=== PATIENT | female | born 1970 | race African-American/Black ===

== ENCOUNTER 2017-05-18 06:14 | Inpatient (IN) | payer OTHER ==
[2017-05-14 13:03] VITALS: BMI 41.5
[2017-05-18] MEDS ORDERED: SUCCINYLCHOLINE CHLORIDE 200 MG/10 ML VIAL ONE (06:56)
[2017-05-18] MEDS ORDERED: fentaNYL CITRATE 250 MCG/5 ML VIAL ONE (06:56)
[2017-05-18] MEDS ORDERED: DEXAMETHASONE SOD PHOSPHATE 4 MG/1 ML VIAL ONE ×2 (06:56→10:08)
[2017-05-18] MEDS ORDERED: LIDOCAINE HCL 2% 100 MG/5 ML DISP.SYRIN ONE (06:56)
[2017-05-18] MEDS ORDERED: PROPOFOL 20 ML ONE ×2 (06:56→08:28)
[2017-05-18] MEDS ORDERED: MIDAZOLAM HCL 2 MG/2 ML SINGLE DOSE VIAL ONE (06:57)
[2017-05-18] MEDS ORDERED: ROCURONIUM BROMIDE 50 MG/5 ML VIAL ONE ×2 (06:57→09:05)
--- NOTE | 2017-05-18 07:53 | HP ---
Admitting History and Physical - Admission Chief Complaint: Morbid obesity History Source: Patient Limitations to Obtaining History: No Limitations - Past Medical History ...LMP: 05/05/17 - Past Surgical History Past Surgical History: Yes: - Smoking History Smoking history: Never smoked Aproximately how many cigarettes per day: 0 - Alcohol/Substance Use Hx Alcohol Use: Yes (rarely) Home Medications - Allergies Allergies/Adverse Reactions: Allergies Allergy/AdvReac Type Severity Reaction Status Date / Time No Known Allergies Allergy Verified 05/18/17 06:44 - Home Medications Home Medications: Ambulatory Orders NK [No Known Home Medication] 05/14/17 Family Disease History - Family Disease History Family History: Unremarkable Review of Systems - Review of Systems Constitutional: denies: Chills, Fever HENT: reports: No Symptoms Neck: reports: No Symptoms Cardiovascular: reports: No Symptoms Respiratory: reports: No Symptoms Genitourinary: reports: No Symptoms Neurological: denies: Change in LOC Pain Intensity: 0 Physical Examination Vital Signs: Vital Signs Temperature 98.4 F 05/18/17 06:49 Pulse Rate 80 05/18/17 06:49 Respiratory Rate 16 05/18/17 06:49 Blood Pressure 133/82 05/18/17 06:49 O2 Sat by Pulse Oximetry (%) 100 05/18/17 06:48 Constitutional: Yes: Calm Neck: Yes: WNL Cardiovascular: Yes: WNL Respiratory: Yes: WNL Gastrointestinal: Yes: Soft, Abdomen, Obese Neurological: Yes: Alert, Oriented Problem List - Problems (1) Morbid obesity Code(s): E66.01 - MORBID (SEVERE) OBESITY DUE TO EXCESS CALORIES Assessment/Plan For Robotic possible open vertical sleeve gastrectomy, possible liver biopsy, upper endoscopy
[2017-05-18] MEDS ORDERED: ceFAZolin SODIUM 1 GM VIAL IVPB ONE (08:24)
[2017-05-18] MEDS ORDERED: NEOSTIGMINE METHYLSULFATE 0.5 MG/ML - 10 ML MDV ONE (09:53)
[2017-05-18] MEDS ORDERED: HYDROmorphone HCL CARPU-JECT 1 MG/1 ML DISP.SYRIN IVPB PRN (10:14)
--- NOTE | 2017-05-18 10:14 | OP ---
Operative Note - Note: Operative Date: 05/18/17 Pre-Operative Diagnosis: Morbid obesity Operation: Robotic vertical sleeve gastrectomy. Robotic wedge liver biopsy. Endoscopy/EGD Post-Operative Diagnosis: Other (MOrbid obesity, hepatomegaly) Surgeon: Tomy Coulter Skinner Pelts: Ashely Souza (moises bah) Anesthesia: General Specimens Removed: Greater curvature of stomach. Liver biopsy Estimated Blood Loss (mls): 30 Drains & Tubes with Location: 40 Fr Bougie Operative Report Dictated: Yes
[2017-05-18] MEDS ORDERED: HYDROmorphone HCL CARPU-JECT 2 MG/1 ML DISP.SYRIN IVPUSH ONE ×2 (10:45→12:00)
[2017-05-18] MEDS ORDERED: ACETAMINOPHEN 1000 MG/100 ML VIAL (NON FORMULARY) IVPB ONE (10:50)
[2017-05-18] MEDS ORDERED: HYDROmorphone HCL CARPU-JECT 1 MG/1 ML DISP.SYRIN IVPUSH PRN (10:51)
[2017-05-18] MEDS ORDERED: HYDROmorphone HCL CARPU-JECT 2 MG/1 ML DISP.SYRIN ONE (10:52)
[2017-05-18] MEDS ORDERED: FAMOTIDINE 20 MG/50 ML IVPB 20 MG/50 ML MG IVPB ONE (10:54)
[2017-05-18] MEDS ORDERED: FAMOTIDINE 20 MG PREMIXED IVPB IVPB ONE (11:10)
[2017-05-18 11:12] LABS: HEMATOCRIT 39.2 % (32.4-45.2); HEMOGLOBIN 12.7 GM/dL (10.7-15.3); MCH 23.8 pg (25.7-33.7); MCHC 32.4 g/dl (32.0-36.0); MEAN CELL VOLUME 73.5 fl (80-96); MEAN PLT VOLUME 8.4 fl (7.5-11.1); PLATELET COUNT 408 K/MM3 (134-434); RBC 5.33 M/mm3 (3.60-5.2); WHITE BLOOD COUNT 15.4 K/mm3 (4.0-10.0)
[2017-05-18] MEDS ORDERED: METOCLOPRAMIDE HCL INJECTION 10 MG/2 ML VIAL IVPUSH ONE (11:30)
[2017-05-18 11:40] LABS: ALBUMIN 3.5 g/dl (3.4-5.0); ALK PHOS 110 U/L (45-117); ANION GAP 6 (8-16); BILIRUBIN,TOTAL 0.2 mg/dL (0.2-1.0); BLOOD UREA NITROGEN 7 mg/dL (7-18); CALCIUM 7.6 mg/dL (8.5-10.1); CHLORIDE 106 mmol/L (98-107); CO2 27 mmol/L (21-32); CREATININE 0.7 mg/dL (0.55-1.02); GLUCOSE,RANDOM 201 mg/dL (74-106); POTASSIUM 3.5 mmol/L (3.5-5.1); SGOT/AST 65 U/L (15-37); SGPT/ALT 60 U/L (12-78); SODIUM 139 mmol/L (136-145); TOT PROT 7.1 g/dl (6.4-8.2)
[2017-05-18] MEDS ORDERED: ONDANSETRON 4 MG/2 ML VIAL ONE (12:27)
[2017-05-18] MEDS ORDERED: ONDANSETRON 4 MG/2 ML VIAL IVPUSH ONE (12:32)
[2017-05-18] MEDS ORDERED: HYDROmorphone *PCA* 6MG/30ML DISP.SYRIN PCA ONE (12:44)
[2017-05-18] MEDS ORDERED: HYDROmorphone *PCA* 10MG/50ML DISP.SYRIN PCA ONE (13:10)
--- NOTE | 2017-05-18 13:31 | SURG ---
Surgery Careers Counsellor Note Careers Counsellor: Ashely Souza PA-C Date of Service: 05/18/17 Diagnosis: Morbid obesity Procedure: Robotic vertical sleeve gastrectomy. Robotic wedge liver biopsy. Endoscopy/EGD I was present for the entirety of the operative procedure. For further detail, please refer to operative report. Visit type - Case Type Case Type: Scheduled Admission - Emergency Emergency Visit: No - New patient This patient is new to me today: Yes Date on this admission: 05/18/17
[2017-05-18] MEDS: ONDANSETRON 4 MG/2 ML VIAL IVPUSH SCH ×4 (14:50→21:31)
[2017-05-18] MEDS: SODIUM CHLORIDE 1,000 ML IV SCH (15:48)
[2017-05-18] MEDS: METOCLOPRAMIDE HCL INJECTION 10 MG/2 ML VIAL IVPUSH SCH ×3 (15:53→21:31)
[2017-05-18] MEDS: ACETAMINOPHEN 1000 MG/100 ML VIAL (NON FORMULARY) IVPB SCH ×2 (15:54→17:26)
[2017-05-18] MEDS: HYDROmorphone *PCA* 6MG/30ML DISP.SYRIN PCA SCH (15:55)
[2017-05-18] MEDS ORDERED: PT OWN MED DRAWER 7, Y5N ONE (21:23)
[2017-05-18] MEDS: ENOXAPARIN NA (PORCINE) 40 MG/0.4 ML DISP.SYRIN SQ SCH (21:30)
[2017-05-18] MEDS: FAMOTIDINE 20 MG/50 ML IVPB 20 MG/50 ML MG IVPB SCH (22:01)
[2017-05-19] MEDS: ACETAMINOPHEN 1000 MG/100 ML VIAL (NON FORMULARY) IVPB SCH ×2 (01:15→05:20)
[2017-05-19] MEDS: ONDANSETRON 4 MG/2 ML VIAL IVPUSH SCH ×6 (02:42→22:11)
[2017-05-19] MEDS: METOCLOPRAMIDE HCL INJECTION 10 MG/2 ML VIAL IVPUSH SCH ×4 (02:45→22:11)
[2017-05-19 07:11] LABS: HEMATOCRIT 35.7 % (32.4-45.2); HEMOGLOBIN 11.8 GM/dL (10.7-15.3); MCH 23.8 pg (25.7-33.7); MEAN CELL VOLUME 72.2 fl (80-96); MEAN PLT VOLUME 8.3 fl (7.5-11.1); PLATELET COUNT 346 K/MM3 (134-434); RBC 4.95 M/mm3 (3.60-5.2); RDW 18.4 % (11.6-15.6); WHITE BLOOD COUNT 13.6 K/mm3 (4.0-10.0)
[2017-05-19 08:19] LABS: ALBUMIN 3.2 g/dl (3.4-5.0); ANION GAP 8 (8-16); BLOOD UREA NITROGEN 4 mg/dL (7-18); CALCIUM 7.2 mg/dL (8.5-10.1); CHLORIDE 104 mmol/L (98-107); CO2 25 mmol/L (21-32); GLUCOSE,RANDOM 89 mg/dL (74-106); POTASSIUM 3.3 mmol/L (3.5-5.1); SODIUM 137 mmol/L (136-145)
[2017-05-19 08:23] LABS: ALK PHOS 89 U/L (45-117); BILIRUBIN,TOTAL 0.4 mg/dL (0.2-1.0); CREATININE 0.5 mg/dL (0.55-1.02); SGOT/AST 89 U/L (15-37); SGPT/ALT 87 U/L (12-78); TOT PROT 6.5 g/dl (6.4-8.2)
[2017-05-19] MEDS: ENOXAPARIN NA (PORCINE) 40 MG/0.4 ML DISP.SYRIN SQ SCH ×2 (10:37→22:12)
[2017-05-19] MEDS: FAMOTIDINE 20 MG/50 ML IVPB 20 MG/50 ML MG IVPB SCH ×2 (10:38→22:11)
[2017-05-19] MEDS: SODIUM CHLORIDE 1,000 ML IV SCH (10:39)
[2017-05-19] MEDS ORDERED: HYDROmorphone *PCA* 6MG/30ML DISP.SYRIN PCA ONE (12:35)
[2017-05-19] MEDS: HYDROmorphone *PCA* 6MG/30ML DISP.SYRIN PCA SCH (12:46)
[2017-05-19] MEDS ORDERED: SODIUM CHLORIDE 1,000 ML IV SCH ×2 (14:15→20:30)
--- NOTE | 2017-05-19 15:30 | PATH ---
Surgical Pathology Report Patient Name: JACQUELYN DARLING [facility]. Rec. #: [id number] /Age/Gender: 1970 (Age: 46) / F Account: [id number] Location: 4 PEDS/ADOL Taken: 05/18/2017 Received: 05/18/2017 Reported: 05/19/2017 Physicians: Tomy Coulter M.D. Specimen(s) Received A: GREATER CURVATURE OF STOMACH B: LIVER BIOPSY Clinical History Morbid obesity Final Diagnosis A. STOMACH, GREATER CURVATURE, ROBOTIC ASSISTED LAPAROSCOPIC VERTICAL SLEEVE GASTRECTOMY: PORTION OF STOMACH WITH MILD CHRONIC GASTRITIS. IMMUNOHISTOCHEMICAL STAIN FOR H. PYLORI IS NEGATIVE. B. LIVER, BIOPSY: LIVER PARENCHYMA WITH MILD PATCHY STEATOSIS ( ~5%). NO INCREASE IN IRON AND FIBROSIS ON PERFORMED SPECIAL STAINS (IRON AND TRICHROME). Electronically Signed Rowan Hernandez M.D. Gross Description A. Received in formalin, labeled "greater curvature of stomach," is a 100 gram, 19.0 x 3.8 x 3.3 cm. portion of stomach with a stapled margin of resection. The serosa is kim-dunlap with minimal attached fat. The mucosa is kim-pink with normal folds. No mucosal masses are identified. Software Installer sections are submitted in one cassette. B. Received in formalin labeled "liver biopsy," is a 1.9 x 0.9 x 0.6 cm kim, irregular portion of liver tissue. The specimen is bisected and entirely submitted in one cassette. /05/18/2017 saudi05/18/2017
[2017-05-19] MEDS ORDERED: PT OWN MED DRAWER 7, Y5N ONE ×4 (15:32→19:18)
--- NOTE | 2017-05-19 20:23 | PN ---
Progress Note (short form) - Note Progress Note: POD 1 Pain controlled No nausea Vital Signs Period Temp Pulse Resp BP Sys/Nixon Pulse Ox Last 24 Hr 97.7 F-99.0 F 78-82 16-22 133-159/69-95 95-95 Abd soft CBC, BMP 05/19/17 05:35 05/19/17 05:35 UGI: no leak/obstruction Clears Ambulate Problem List - Problems (1) Morbid obesity Code(s): E66.01 - MORBID (SEVERE) OBESITY DUE TO EXCESS CALORIES
[2017-05-19] MEDS ORDERED: oxyCODONE HCL 5 MG TABLET PO PRN (20:27)
[2017-05-20] MEDS: METOCLOPRAMIDE HCL INJECTION 10 MG/2 ML VIAL IVPUSH SCH (02:10)
[2017-05-20] MEDS: ONDANSETRON 4 MG/2 ML VIAL IVPUSH SCH ×2 (02:10→05:49)
[2017-05-20 06:35] VITALS: TEMP 98.7
[2017-05-20 08:50] VITALS: BP 140/95; PULSE 90
--- NOTE | 2017-05-20 09:30 | SPEC ---
DATE OF OPERATION: 05/18/2017 SURGEON: Salas Coulter MD SYSTEMS ADMINISTRATION ANALYST: MARAI INES Rees; Yen Warner PREOPERATIVE DIAGNOSIS: Morbid obesity. POSTOPERATIVE DIAGNOSIS: Morbid obesity and hepatomegaly. PROCEDURES: 1. Robotic vertical sleeve gastrectomy. 2. Robotic wedge liver biopsy. 3. Upper endoscopy/esophagogastroduodenoscopy. SPECIMENS: 1. Greater curvature of the stomach. 2. Wedge biopsy of the left lobe of the liver. ESTIMATED BLOOD LOSS: 30 mL. BOUGIE: 40-Citizen Of [place] ANESTHESIA: GET. DRAINS: None. REASON FOR PROCEDURE: This is a 46-year-old female who presents to the office for weight loss options. I have described her options. She decided to proceed with a robotic vertical sleeve gastrectomy, possible open, possible liver biopsy and upper endoscopy. The risks and benefits of the procedure were explained. RISKS AND BENEFITS: After describing the different options for management of weight loss, the patient decided to proceed with a robotic laparoscopic, possible open vertical sleeve gastrectomy. The patient was seen by the respective subspecialities and cleared for surgery. The risks and benefits of the procedure were explained. These included bleeding, infection, hernia, NM, DVT, PE, injury to surrounding structures including the liver, colon, bowel, spleen, esophagus, vessel injury, nerve injury, weight regain, gastric leak, staple line leak, sleeve leak, obstruction, vitamin deficiency, hair loss, and as some of the possible complications. The patient understood and signed informed consent. DESCRIPTION OF PROCEDURE: The patient was placed supine on the operating room table. The patient underwent general endotracheal intubation. A Milligan catheter was inserted by the nursing staff. The arms were brought out at 90 degrees and secured. A foot board was placed and the legs were secured laterally with padding. The abdomen was prepped and draped in the usual sterile fashion. A time-out was performed. An incision was made superior and to the left of the umbilicus. A Veress needle was inserted. Pneumoperitoneum was established. Subsequently the Veress needle was removed. An 8-mm robotic trocar was placed under direct visualization with the laparoscope. Inspection of the abdominal cavity was performed. An 8-mm trocar was then placed in the left abdominal wall approximately 6 to 7 cm to the left of the initial trocar. An 8-mm robotic trocar was then placed in the left abdominal wall approximately 6 to 7 cm to the left of the initial trocar. A 12-mm robotic trocar was then placed in the right abdominal wall approximately 6 to 7 cm to the right of the initial trocar and an 8-mm robotic trocar placed approximately 6 to 7 cm lateral to the 12-mm trocar. A stab wound was made in the subxiphoid area and a Mamta clamp inserted and removed to dilate the tract. A Tomeka liver retractor was inserted. The post was secured at the bedside by the nursing staff. The patient was placed in steep reverse Trendelenburg position and the Tomeka liver retractor was used to secure the liver towards the anterior abdominal wall. The robot was brought over the field and docked. Dissection was performed at the console. The pylorus was identified and 6 cm proximal to it the lesser sac was entered using the vessel sealer. From this point cephalad all lateral attachments to the greater curvature of the stomach including the short gastric vessels were ligated using the vessel sealer towards the gastrosplenic and gastrophrenic ligaments. Once this was done in its entirety, all tubes within the nasal or oropharyngeal cavity including a temperature probe was confirmed to be removed by Anesthesia. The bougie was then inserted by Anesthesia. Transection of the stomach was then begun staying adjacent to the bougie, but away from the angularis. Transection of the stomach was performed near the portion of the stomach where the lesser sac was entered. Two robotic green ja were used at this location. Robotic blue ja were then used for the remainder of the transection until the greater curvature of the stomach was fully transected. Again this was done staying close to the bougie. Care was taken to stay away from the angle of His cephalad. The staple line was then inspected. Hemostasis was identified. A leak test was then performed. The stomach was clamped distally to the staple line. Irrigation solution was placed in the left upper quadrant and air insufflated by Anesthesia into the sleeve. No leaks were identified and no obstruction was identified. This was done throughout the staple line. At this point, the irrigation solution was suctioned and again hemostasis noted. A wedge liver biopsy was then performed. A portion of the left lobe of the liver was identified and an edge of it grasped. Using electrocautery a wedge of this portion of the liver was excised. The specimen was removed from the abdominal cavity and sent off the field. Hemostasis of the biopsy site as attained using electrocautery. The robotic instruments were then removed. The robot was undocked from the operative field. The 12-mm robotic trocar was removed and the greater curvature specimen removed from this site using a sponge stick gaona. The specimen was inspected and the Veress needle inserted. The specimen insufflated adequately and no leak was identified. The staple line was noted to be straight and intact. A Rahul-David device was then used to close the fascia with a 0 Vicryl suture at this site. The liver retractor was removed under direct visualization. Pneumoperitoneum was desufflated and the fascial suture was secured. Hemostasis was noted at all incision sites and Marcaine was injected at all incision sites. All incision sites were closed using 4-0 Biosyn. Sterile dressings were applied. The patient tolerated the procedure well and was transferred to the recovery room in stable condition with a Milligan catheter intact. The patient was transferred to telemetry for further monitoring. In addition, at the end of the case an upper endoscopy was performed to further evaluate for obstruction, leak. The endoscope was inserted into the patient's mouth. The entirety of the esophagus, GE junction, gastric pouch, and staple line was inspected. Hemostasis was noted. No obstruction or leak was noted. The endoscope was then used to suction the stomach and it was removed. The patient tolerated the procedure well, was transferred to recovery room in stable condition. SALAS COULTER M.D. [id number]
== END 2017-05-20 10:28 | disposition home or self-care (01) | DRG 621 ==
LOC: JSAMEDAYSX 06:14 → EDSTATUS 09:00 → J4S 14:08
PROVIDERS: ADMIT Surgery; ATTEND Surgery
PROC: 0FB20ZX Excision of Left Lobe Liver, Open Approach, Diagnostic (ICD-10-PCS; 2017-05-18)
PROC: 0DJ08ZZ Inspection of Upper Intestinal Tract, Via Natural or Artificial Opening Endoscopic (ICD-10-PCS; 2017-05-18)
PROC: 8E0W8CZ Robotic Assisted Procedure of Trunk Region, Via Natural or Artificial Opening Endoscopic (ICD-10-PCS; 2017-05-18)
PROC: 0DB64Z3 Excision of Stomach, Percutaneous Endoscopic Approach, Vertical (ICD-10-PCS; principal; 2017-05-18 09:00)
DX: E66.01 Morbid (severe) obesity due to excess calories (principal); Z68.41 Body mass index [BMI] 40.0-44.9, adult; R16.0 Hepatomegaly, not elsewhere classified; K29.50 Unspecified chronic gastritis without bleeding; K76.0 Fatty (change of) liver, not elsewhere classified
CPT/HCPCS: 36415; 74241-TC-FY; 80053; 84703; 85027; 86850; 86900; 86901; 88307-TC; 94010; 94760; J0131; J1170; J7030

== ENCOUNTER 2017-07-07 13:27 | Emergency (ER) | payer OTHER ==
[2017-07-07 13:35] VITALS: TEMP 97.9; BMI 34.9
--- NOTE | 2017-07-07 15:04 | PDOC ---
History of Present Illness - General Chief Complaint: Pain Stated Complaint: PAIN/ ABD, BACK Recent Gastric Sleeve 05/18/17 Time Seen by Provider: 07/07/17 15:04 - History of Present Illness Initial Comments: 46 year old female with PMH of GERD and recent gastric sleeve resection ( without complication and appropriate diet advancement) presenting with sudden onset of left sided flank pain and urinary urgency with difficulty since 12:00 this afternoon. Denies history of kidney stones and has had not complications post resection. Denies fevers, chills, nausea, vomiting, diarrhea , constipation, or other symptoms. 07/07/17 15:28 Past History - Past Medical History Allergies/Adverse Reactions: Allergies Allergy/AdvReac Type Severity Reaction Status Date / Time No Known Allergies Allergy Verified 07/07/17 13:34 Home Medications: Ambulatory Orders NK [No Known Home Medication] 07/07/17 Anemia: No Asthma: No Cancer: No Cardiac Disorders: No CVA: No COPD: No CHF: No Dementia: No Diabetes: No GI Disorders: No Disorders: No HTN: No Hypercholesterolemia: No Liver Disease: No Seizures: No Thyroid Disease: No - Surgical History Abdominal Surgery: Yes (TUBAL LIGATION, GASTRIC SLEEVE 05/2017) - Immunization History Immunization Up to Date: Yes - Suicide/Smoking/Psychosocial Hx Smoking Status: No Smoking History: Never smoked Number of Cigarettes Smoked Daily: 0 Information on smoking cessation initiated: No Hx Alcohol Use: No Drug/Substance Use Hx: No Substance Use Type: None Hx Substance Use Treatment: No Review of Systems - Review of Systems Constitutional: No: Chills, Diaphoresis, Fever HEENTM: No: Blurred Vision, Ear Pain Respiratory: No: Cough, Shortness of Breath, Wheezing Cardiac (ROS): No: Chest Pain, Irregular Heart Rate, Chest Tightness ABD/GI: No: Constipated, Diarrhea, Nausea, Vomiting Integumentary: No: Lesions, Lumps, Pallor Neurological: No: Headache, Numbness, Weakness Endocrine: No: Flushing *Physical Exam - Vital Signs Last Vital Signs Temp Pulse Resp BP Pulse Ox 97.9 F 84 19 140/88 100 07/07/17 13:32 07/07/17 13:32 07/07/17 13:32 07/07/17 13:32 07/07/17 13:32 - Physical Exam General Appearance: Yes: Nourished, Appropriately Dressed. No: Apparent Distress HEENT: positive: EOMI, ADAM, Normal ENT Inspection, Normal Voice Neck: positive: Trachea midline, Normal Thyroid, Supple. negative: Tender, Rigid Respiratory/Chest: positive: Lungs Clear, Normal Breath Sounds. negative: Chest Tender, Respiratory Distress Cardiovascular: positive: Regular Rhythm, Regular Rate Gastrointestinal/Abdominal: positive: Normal Bowel Sounds, Flat, Soft. negative : Tender Musculoskeletal: positive: Normal Inspection. negative: CVA Tenderness Extremity: positive: Normal Capillary Refill, Normal Inspection, Normal Range of Motion. negative: Tender Integumentary: positive: Normal Color, Dry, Warm Neurologic: positive: Fully Oriented, Alert, Normal Mood/Affect, Normal Response , Motor Strength 08/14 ED Treatment Course - LABORATORY CBC & Chemistry Diagram: 07/07/17 15:27 07/07/17 15:27 Medical Decision Making - Medical Decision Making UA was dirty but significant for microscopic hematuria. Will repeat UA and obtain UC but will CT scan without contrast in the meantime. Flank pain much resolved with Toradol IV 15. Likely stone vs. left ovarian pathology. Signed out to Dr. Trevino in stable condition pending repeat imaging and repeat UA pending. 07/07/17 18:43 *DC/Admit/Observation/Transfer Diagnosis at time of Disposition: Renal calculi - Discharge Dispostion Condition at time of disposition: Improved Admit: No - Referrals Referrals: Ramu Mckeon MD [Primary Care Provider] - - Patient Instructions Printed Discharge Instructions: DI for Kidney Stones Additional Instructions: You have a stone in your left urinary tract. It should pass on its own within a few days. Please use Tylenol and Motrin for the pain. Please return to the ED if you have pain that isn't better with these medications or nausea/vomiting that doesn't allow you to keep your medicines down. Also return if gomez have new or worsening symptoms. - Post Discharge Activity
[2017-07-07] MEDS ORDERED: KETOROLAC TROMETHAMINE 15 MG/ML VIAL IVPUSH ONE (15:24)
--- NOTE | 2017-07-07 15:30 | PDOC ---
Attending Attestation - Resident Resident Name: Hermes Masters - ED Attending Attestation I have performed the following: I have examined & evaluated the patient, The case was reviewed & discussed with the resident, I agree w/resident's findings & plan, Exceptions are as noted - Physicial Exam PE: 07/07/17 17:02 Patient is awake and alert, obese, in no distress on my evaluation Normocephalic, atraumatic PERRLA, EOMI CTA Soft, nontender, nondistended, bowel sounds are present in all 4 quadrants No CVA tenderness bilaterally - Medical Decision Making 07/07/17 17:03 46-year-old female presents with atraumatic left flank and left lower quadrant pain. Differential diagnoses includes nephrolithiasis versus ovarian cyst versus ovarian torsion. Urinalysis reveals hematuria without presence of pyuria. Will obtain CT that and pelvis to rule out kidney stone. We'll consider pelvic ultrasound for ovarian pathology if necessary. Will reassess. <Kermit Cantor - Last Filed: 07/07/17 17:02> - HPI HPI: 07/07/17 17:09 The patient is a 46 year old female with a significant PMH of GERD and gastric sleeve resection who presents to the emergency department with left sided flank pain and LLQ pain beginning approximately 5 hours ago. She describes her pain as an intermittent, cramping sensation which is 10/10 at its worst. She reports she does not feel significant pain upon presentation. The patient denies fevers , chills, nausea, vomiting, and diarrhea. She denies dysuria or urinary incontinence. Allergies: NKA PCP: Dr. Mckeon <Ulisses Johnson - Last Filed: 07/07/17 17:09>
[2017-07-07 15:33] LABS: HCG,QUALITATIVE URINE NEGATIVE; URINE APPEARANCE CLOUDY; URINE BILIRUBIN NEGATIVE (<2.0 mg/dL); URINE BLOOD 2+ (NEGATIVE); URINE COLOR YELLOW; URINE GLUCOSE (UA) NEGATIVE (NEGATIVE); URINE KETONE 2+ (NEGATIVE); URINE NITRITE NEGATIVE (NEGATIVE); URINE UROBILINOGEN NEGATIVE mg/dL (0.2-1.0)
[2017-07-07] MEDS ORDERED: KETOROLAC TROMETHAMINE 15 MG/ML VIAL ONE (15:35)
[2017-07-07 15:36] LABS: URINE LEUK ESTERASE 2+ (NEGATIVE); URINE PROTEIN 1+ (NEGATIVE)
[2017-07-07 15:37] LABS: EPI CELLS MANY /HPF (FEW); URINE BACTERIA RARE /hpf (NONE SEEN); URINE MUCUS RARE
[2017-07-07 16:06] LABS: BASO % 0.8 % (0-2.0); EOS % 0.4 % (0-4.5); HEMATOCRIT 37.9 % (32.4-45.2); HEMOGLOBIN 13.1 GM/dL (10.7-15.3); LYMPH % 20.8 % (8-40); MCH 25.5 pg (25.7-33.7); MCHC 34.7 g/dl (32.0-36.0); MEAN CELL VOLUME 73.6 fl (80-96); MEAN PLT VOLUME 9.3 fl (7.5-11.1); MONO % 5.3 % (3.8-10.2); NEUT % 72.7 % (42.8-82.8); PLATELET COUNT 332 K/MM3 (134-434); RBC 5.15 M/mm3 (3.60-5.2)
[2017-07-07 16:32] LABS: ALBUMIN 3.8 g/dl (3.4-5.0); ALK PHOS 94 U/L (45-117); ANION GAP 10 (8-16); BILIRUBIN,TOTAL 0.3 mg/dL (0.2-1.0); BLOOD UREA NITROGEN 11 mg/dL (7-18); CALCIUM 9.2 mg/dL (8.5-10.1); CHLORIDE 105 mmol/L (98-107); CO2 24 mmol/L (21-32); CREATININE 0.7 mg/dL (0.55-1.02); GLUCOSE,RANDOM 118 mg/dL (74-106); POTASSIUM 3.3 mmol/L (3.5-5.1); SGOT/AST 17 U/L (15-37); SGPT/ALT 19 U/L (12-78); SODIUM 139 mmol/L (136-145); TOT PROT 7.1 g/dl (6.4-8.2)
[2017-07-07] MEDS ORDERED: SODIUM CHLORIDE 0.9% 500 ML INFUS.BAG IV ONE (16:43)
[2017-07-07 19:11] LABS: URINE APPEARANCE CLEAR; URINE BILIRUBIN NEGATIVE (<2.0 mg/dL); URINE BLOOD 2+ (NEGATIVE); URINE COLOR STRAW; URINE GLUCOSE (UA) NEGATIVE (NEGATIVE); URINE KETONE 1+ (NEGATIVE); URINE LEUK ESTERASE NEGATIVE (NEGATIVE); URINE NITRITE NEGATIVE (NEGATIVE); URINE PROTEIN NEGATIVE (NEGATIVE); URINE UROBILINOGEN NEGATIVE mg/dL (0.2-1.0)
[2017-07-07 19:15] LABS: EPI CELLS RARE /HPF (FEW); URINE BACTERIA RARE /hpf (NONE SEEN); URINE MUCUS RARE
--- NOTE | 2017-07-07 21:35 | PDOC ---
*Physical Exam - Vital Signs Last Vital Signs Temp Pulse Resp BP Pulse Ox 97.9 F 84 19 140/88 100 07/07/17 13:32 07/07/17 13:32 07/07/17 13:32 07/07/17 13:32 07/07/17 13:32 - Physical Exam Comments: 07/07/17 21:58 GENERAL: Awake, alert, and fully oriented, in no acute distress HEAD: No signs of trauma, normocephalic, atraumatic EYES: PERRLA, EOMI, sclera anicteric, conjunctiva clear ENT:Hearing grossly normal, nares patent, oropharynx clear without exudates. Moist mucosa NECK: Normal ROM, supple, no lymphadenopathy, JVD, or masses LUNGS: No distress, speaks full sentences, clear to auscultation bilaterally HEART: Regular rate and rhythm, normal S1 and S2, no murmurs, rubs or gallops, peripheral pulses normal and equal bilaterally. ABDOMEN: Soft, nontender, normoactive bowel sounds. No guarding, no rebound. No masses EXTREMITIES : Normal inspection, Normal range of motion, no edema. No clubbing or cyanosis. SKIN: Warm, Dry, normal turgor, no rashes or lesions noted ED Treatment Course - LABORATORY CBC & Chemistry Diagram: 07/07/17 15:27 07/07/17 15:27 - ADDITIONAL ORDERS Additional order review: Laboratory Results 07/07/17 07/07/17 07/07/17 18:54 15:27 15:25 Sodium 139 Potassium 3.3 L Chloride 105 Carbon Dioxide 24 Anion Gap 10 BUN 11 Creatinine 0.7 Creat Clearance w eGFR > 60 Random Glucose 118 H Calcium 9.2 Total Bilirubin 0.3 D AST 17 ALT 19 Alkaline Phosphatase 94 Total Protein 7.1 Albumin 3.8 Urine Color Straw Yellow Urine Appearance Clear Cloudy Urine pH 6.0 5.0 Ur Specific [place] 1.008 1.032 Urine Protein Negative 1+ H Urine Glucose (UA) Negative Negative Urine Ketones 1+ H 2+ H Urine Blood 2+ H 2+ H Urine Nitrite Negative Negative Urine Bilirubin Negative Negative Urine Urobilinogen Negative Negative Ur Leukocyte Esterase Negative 2+ H Urine WBC (Auto) 1 12 Urine RBC (Auto) 9 69 Ur Epithelial Cells Rare Many Urine Bacteria Rare Rare Urine Mucus Rare Rare Urine HCG, Qual Negative 07/07/17 15:27 RBC 5.15 MCV 73.6 L MCHC 34.7 RDW 19.0 H MPV 9.3 D Neutrophils % 72.7 D Lymphocytes % 20.8 D Monocytes % 5.3 Eosinophils % 0.4 D Basophils % 0.8 - Medications Given in the ED: ED Medications Discontinued Medications Generic Name Dose Route Start Last Admin Trade Name Tan PRN Reason Stop Dose Admin Ketorolac Tromethamine 15 mg 07/07/17 15:24 07/07/17 15:57 Toradol Injection - IVPUSH 07/07/17 15:25 15 mg ONCE ONE Administration Sodium Chloride 1,000 ml 07/07/17 16:43 07/07/17 17:29 Normal Saline - IV 07/07/17 16:44 1,000 ml ONCE ONE Administration Medical Decision Making - Medical Decision Making 07/07/17 21:[address] Masters 46 yo F with h/o GERD and gastric sleeve resection (05/20/17 )p/w sudden onset of L sided sided flank pain and urinary urgency with difficulty since 12:00 ( ).Denies N/V, F/C, dysuria, hematuria, CP, SOB, diarrhea, constipation. CT AP pending. ED Course: CT AP noteable for 2 mm stone at left UVJ with mild hydro. No evidence of pyeloneprhitis, or overt signs of infection. Pt. advised to f/u with urology and sent Flomax to pharmacy. Patient stable for d/c with return precautions. Advised to f/u with urology. *DC/Admit/Observation/Transfer Diagnosis at time of Disposition: Renal calculi - Discharge Dispostion Condition at time of disposition: Improved - Prescriptions Prescriptions: Tamsulosin HCl [Flomax] 0.4 mg PO DAILY 7 Days #7 cap.er.24h MDD 1 tab - Referrals Referrals: Ramu Mckeon MD [Primary Care Provider] - Swapnil Chopra MD [Staff Physician] - - Patient Instructions Printed Discharge Instructions: DI for Kidney Stones Additional Instructions: You have a stone in your left urinary tract. It should pass on its own within a few days. Please use Tylenol and Motrin for the pain. Please return to the ED if you have pain that isn't better with these medications or nausea/vomiting that doesn't allow you to keep your medicines down. Also return if you have new or worsening symptoms. Please take flomax daily.Please follow up with urology within 1 week. - Post Discharge Activity - Attestations Physician Attestion: 07/07/17 21:47 I attest to the information provided in this note.
[2017-07-07] MEDS ORDERED: KETOROLAC TROMETHAMINE 30 MG/1 ML VIAL ONE (21:57)
[2017-07-07 21:59] VITALS: BP 118/80; PULSE 68
--- NOTE | 2017-07-08 12:16 | CONSULT ---
Consult Consult Specialty:: Bariatric Surgery Reason for Consultation:: Left back/flank pain - History of Present Illness Chief Complaint: Left back/flank pain History of Present Illness: 46 female presents for left back/flank pain + pain on urination No fevers Tolerating diet +BM - History Source History Provided By: Patient - Past Medical History ...LMP: 05/05/17 - Past Surgical History Past Surgical History: Yes: Bariatric Surgery (Sleeve gastrectomy), - Alcohol/Substance Use Hx Alcohol Use: No - Smoking History Smoking history: Never smoked Aproximately how many cigarettes per day: 0 Home Medications - Allergies Allergies/Adverse Reactions: Allergies Allergy/AdvReac Type Severity Reaction Status Date / Time No Known Allergies Allergy Verified 07/07/17 13:34 - Home Medications Home Medications: Ambulatory Orders Tamsulosin HCl [Flomax] 0.4 mg PO DAILY 7 Days #7 cap.er.24h MDD 1 tab 07/07/17 Review of Systems - Review of Systems Constitutional: denies: Chills, Fever Neck: reports: No Symptoms Cardiovascular: reports: No Symptoms. denies: Chest Pain Respiratory: reports: No Symptoms Gastrointestinal: reports: Other (Left back/flank pain). denies: Abdominal Pain Neurological: denies: Change in LOC Pain Intensity: 5 Physical Exam Vital Signs: Vital Signs Temperature 97.9 F 07/07/17 13:32 Pulse Rate 68 07/07/17 21:58 Respiratory Rate 16 07/07/17 21:58 Blood Pressure 118/80 07/07/17 21:58 O2 Sat by Pulse Oximetry (%) 100 07/07/17 13:32 Constitutional: Yes: Calm HENT: Yes: WNL Neck: Yes: Supple Cardiovascular: Yes: Regular Rate and Rhythm Respiratory: Yes: Regular Gastrointestinal: Yes: Soft, Other. No: Tenderness, Rebound Renal/: Yes: CVA Tenderness - Left Wound/Incision: Yes: Clean/Dry Neurological: Yes: Alert, Oriented Labs: CBC, BMP 07/07/17 15:27 07/07/17 15:27 Imaging - Results Cat Scan: Report Reviewed, Image Reviewed Problem List - Problems (1) Renal calculi Code(s): N20.0 - CALCULUS OF KIDNEY Assessment/Plan Renal stone Hydration Urology if does not improve
== END 2017-07-07 22:01 | disposition home or self-care (01) ==
LOC: JER 13:27
PROC: 3E0333Z Introduction of Anti-inflammatory into Peripheral Vein, Percutaneous Approach (ICD-10-PCS; principal; 2017-07-07)
PROC: 3E0337Z Introduction of Electrolytic and Water Balance Substance into Peripheral Vein, Percutaneous Approach (ICD-10-PCS; 2017-07-07)
DX: N20.0 Calculus of kidney (principal); K21.9 Gastro-esophageal reflux disease without esophagitis
CPT/HCPCS: 36415; 74176-TC; 80053; 81003; 81015; 84703; 85025; 87086; 99284-25

== ENCOUNTER 2019-03-11 17:17 | Emergency (ER) | payer OTHER ==
[2019-03-11 17:35] VITALS: BMI 32.2
--- NOTE | 2019-03-11 18:22 | PDOC ---
Attending Attestation - Resident Resident Name: Tomy Noble - ED Attending Attestation I have performed the following: I have examined & evaluated the patient, The case was reviewed & discussed with the resident, I agree w/resident's findings & plan, Exceptions are as noted - HPI HPI: 03/11/19 18:18 Ms. Darling is a 48-year-old female with no significant past medical history who presents emergency department with a complaint of epigastric pain radiating to her chest and back. Patient states her symptoms had a gradual onset, beginning at approximately 2 PM following a meal of macaroni and cheese. Patient went shopping with her daughter and while shopping she noted her symptoms persisted and worsened. She has not had symptoms like this before. She denies associated nausea, diaphoresis. No fevers or chills Patient has no medical history No recent travel, no lower extremity edema No shortness of breath No tobacco use Upon arrival to the emergency department, patient states her symptoms have completely resolved Her did give her 2 aspirins prior to arrival 03/11/19 18:19 - Physicial Exam PE: 03/11/19 18:19 GENERAL: The patient is in no acute distress. ENT: Ears normal, nares patent, oropharynx clear without exudates. Moist mucous membranes. NECK: Normal range of motion LUNGS: Breath sounds equal, clear to auscultation bilaterally. No wheezes, and no crackles. HEART:Regular rate and rhythm, normal S1 and S2 without murmur, rub or gallop. No chest wall tenderness to palpation ABDOMEN: Soft, nontender, normoactive bowel sounds. EXTREMITIES: Normal range of motion, no edema. NEUROLOGICAL: Cranial nerves II through XII grossly intact. Normal speech. No focal neurological deficits. SKIN: Warm, Dry, normal turgor, no rashes or lesions noted. - Medical Decision Making 03/11/19 18:20 48-year-old female presenting to the emergency department with a complaint of epigastric/chest pain radiating to the back Chest pain has resolved upon arrival to the ER Differential includes cardiac ischemia, pe, asthma exacerbation, pneumonia, pneumothorax, pleural effusion, costochondritis, pericarditis, GERD. Doubt pulmonary embolism given no risk factors, no tachycardia, no shortness of breath, no pleurisy No chest wall tenderness Cardiac ischemia is still a possibility however symptoms seems most likely related to gastritis/GERD We will do: Lab EKG Chest x-ray Blood pressures both arms Patient symptoms have completely resolved, no need for Pepcid We will reassess EKG: Normal sinus rhythm, rate of 63 bpm, axis is normal, intervals are normal, T waves are upright, no ST depressions or elevations, no pathologic Q waves 03/11/19 18:25 Blood pressure in both arms Right arm-125/72 Left arm-116/78 03/11/19 18:50 Laboratory Tests 03/11/19 03/11/19 03/11/19 18:00 18:00 18:00 WBC 8.4 Hgb 11.1 Hct 34.3 Plt Count 343 INR BUN 7.2 Creatinine 0.5 L Calcium 8.2 L Creatine Kinase 112 Troponin I < 0.02 Albumin 3.4 03/11/19 18:00 WBC Hgb Hct Plt Count INR 1.16 H BUN Creatinine Calcium Creatine Kinase Troponin I Albumin 03/11/19 21:53 Pt reported recurrent chest pain Will do CTA to r/o aortic dissection (given chest/epigastric pain radiating to the back) 03/12/19 01:44 CT: Referring Physician: AYUSH LEE Comments: Domenic Hopkins MD wrote on Mar 12, 2019 at 01:39 AM: Referring Physician: AYUSH LEE Patient Name: JACQUELYN DARLING THIS IS A PRELIMINARY REPORT FROM [facility] DATE OF SERVICE: 2019-03-11 22:25:40 IMAGES: [id number] EXAM: CTA CHEST WITHOUT AND WITH INTRAVENOUS CONTRAST AND CTA ABDOMEN AND PELVIS WITHOUT AND WITH INTRAVENOUS CONTRAST. HISTORY: Evaluate dissection. COMPARISON: None. FINDINGS: CTA CHEST: 1. Negative for thoracic aortic aneurysm and dissection. 2. There is no evidence for a central pulmonary embolus. Limited evaluation of the distal/peripheral pulmonary arteries. 3. Mild groundglass opacity of the medial right lower lobe, likely mild scarring secondary to a thoracic vertebral osteophyte. Otherwise, no focal infiltrate, significant pleural effusion or pneumothorax. CTA ABDOMEN AND PELVIS: 1. Negative for abdominal aortic aneurysm and dissection. 2. Abnormal configuration of bilateral common iliac arteries. 3. The SMA, celiac axis, bilateral renal arteries and TERRY are patent. 3. There is a nonspecific masslike soft tissue density measures 2.6 x 2.5 x 2.6 cm of the right paracentral lower abdominal wall which abuts the lower right abdominal rectus muscle. Question inflammatory/fibrous, cannot actually neoplasm. 4. Status post gastric surgery. 5. Limited evaluation of bowel due to the lack of oral contrast, however there is no bowel obstruction. There is colonic diverticulosis without acute diverticulitis. 6. Unremarkable appendix without appendicitis. 7. No free air or significant ascites. CTA negative for dissection However does show a soft tissue mass abutting the abdominal wall Pt given copies of her report with findings underlined and also discussed this with patient She will follow up with PMD Discharge - Discharge Information Problems reviewed: Yes Clinical Impression/Diagnosis: Gastritis Qualifiers: Gastritis type: unspecified gastritis Chronicity: acute Gastritis bleeding: without bleeding Qualified Code(s): K29.00 - Acute gastritis without bleeding Condition: Stable Disposition: HOME - Admission No - Follow up/Referral Referrals: Ramu Mckeon MD [Primary Care Provider] - Rajesh Edwards MD [Staff Physician] - - Patient Discharge Instructions Patient Printed Discharge Instructions: DI for Atypical Chest Pain, DI for Gastritis, Gastritis (Alternative Therapy) Additional Instructions: Thank you for coming in to the ER today Please make a follow up appointment with your primary doctor in 1 week. It may be a good idea to also follow up with a gastrointestinal specialist Please review your CT scan results (your were given a copy). Please give this to your primary care physician Please try over the counter Pepcid as needed for any acid reflux discomfort. If you experience any new, worsening, or concerning symptoms, including severe chest pain, difficulty breathing, severe back pain, or any other concerns, please return to the emergency department. - Post Discharge Activity
--- NOTE | 2019-03-11 18:29 | PDOC ---
History of Present Illness - General Chief Complaint: Chest Pain Stated Complaint: CHEST & BACK PAIN Time Seen by Provider: 03/11/19 17:28 - History of Present Illness Initial Comments: Ms. Crowe is a 48 y/o female with PMH significant for morbid obesity s/p gastric sleeve presenting today with substernal chest pressure radiating to the back. Reports that the pressure started around 1pm today. Describes the pressure as constant. Reports that this happened after eating mac and cheese for lunch. Reports mild heart palpitations earlier this afternoon. Denies shortness of breath. Denies chest pain worsening on exertion. Denies abdominal pain/nausea/vomiting. Denies lower extremity swelling. Denies pleuritic chest pain. Past History - Past Medical History Allergies/Adverse Reactions: Allergies Allergy/AdvReac Type Severity Reaction Status Date / Time No Known Allergies Allergy Verified 03/11/19 17:34 Home Medications: Ambulatory Orders NK [No Known Home Medication] 03/11/19 Anemia: No Asthma: No Cancer: No Cardiac Disorders: No CVA: No COPD: No CHF: No Dementia: No Diabetes: No GI Disorders: No Disorders: No HTN: No Hypercholesterolemia: No Liver Disease: No Seizures: No Thyroid Disease: No - Surgical History Abdominal Surgery: Yes (TUBAL LIGATION, GASTRIC SLEEVE 05/2017) - Immunization History Immunization Up to Date: Yes - Psycho Social/Smoking Cessation Hx Smoking Status: No Smoking History: Unknown if ever smoked Have you smoked in the past 12 months: No Number of Cigarettes Smoked Daily: 0 Information on smoking cessation initiated: No Hx Alcohol Use: No Drug/Substance Use Hx: No Substance Use Type: None Hx Substance Use Treatment: No Cardiac Specific PMH - Complaint Specific PMHX Pacemaker: No Review of Systems - Review of Systems Comments:: GENERAL/CONSTITUTIONAL: No fever or chills. No weakness._ HEAD, EYES, EARS, NOSE AND THROAT: No change in vision. No change in hearing. No sore throat._ CARDIOVASCULAR: Reports chest pressure. No shortness of breath_ RESPIRATORY: Denies cough, hemoptysis_ GASTROINTESTINAL: No nausea, vomiting, diarrhea or constipation._ GENITOURINARY: No dysuria, frequency, or change in urination._ MUSCULOSKELETAL: No joint or muscle swelling or pain. No neck or back pain._ SKIN: No rash_ NEUROLOGIC: No headache, vertigo, loss of consciousness, or change in strength/ sensation._ ENDOCRINE: No increased thirst. No abnormal weight change_ HEMATOLOGIC/LYMPHATIC: No anemia, easy bleeding, or history of blood clots._ ALLERGIC/IMMUNOLOGIC: No hives or skin allergy._ *Physical Exam - Vital Signs Last Vital Signs Temp Pulse Resp BP Pulse Ox 97.8 F 74 18 126/75 98 03/12/19 02:25 03/12/19 02:25 03/12/19 02:25 03/12/19 02:25 03/12/19 02:25 - Physical Exam GENERAL: Awake, alert, and oriented to person/place/time, in no acute distress_ HEAD: No signs of trauma, normocephalic, atraumatic _ EYES: PERRLA, EOMI, sclera anicteric, conjunctiva clear_ ENT: Hearing grossly normal, nares patent, oropharynx clear without exudates. No uvular deviation. Moist mucosa_ NECK: Normal ROM, supple, no lymphadenopathy, JVD, or masses_ LUNGS: No distress, speaks in full sentences, clear to auscultation bilaterally _ HEART: Regular rate and rhythm, normal S1 and S2, no murmurs appreciated, peripheral pulses normal and equal bilaterally._ CHEST WALL: No TTP. No bruising. No rash. ABDOMEN: Soft, nontender, normoactive bowel sounds. No guarding, no rebound. No masses_ EXTREMITIES: Normal inspection, Normal range of motion, no edema. No clubbing or cyanosis_ NEUROLOGICAL: Cranial nerves II through XII grossly intact. Normal speech, normal gait, no focal sensorimotor deficits _ SKIN: Warm, Dry, normal turgor, no rashes or lesions noted_ ED Treatment Course - LABORATORY CBC & Chemistry Diagram: 03/11/19 18:00 03/11/19 18:00 - ADDITIONAL ORDERS Additional order review: 03/11/19 18:00 RBC 4.89 MCV 70.1 L MCHC 32.3 RDW 17.5 H MPV 8.3 Neutrophils % 64.9 Lymphocytes % 24.8 Monocytes % 6.0 Eosinophils % 2.7 D Basophils % 1.6 - RADIOLOGY Radiology Studies Ordered: Category Date Time Status ABDOMEN/PELVIS CTA W/WO CONTR [CT] Stat CT Scan 03/11/19 20:57 Taken CHEST CTA [CT] Stat CT Scan 03/11/19 20:57 Taken CHEST PA & LAT [RAD] Stat Radiology 03/11/19 17:52 Completed - Medications Given in the ED: ED Medications Discontinued Medications Generic Name Dose Route Start Last Admin Trade Name Tan PRN Reason Stop Dose Admin Al Hydroxide/Mg Hydroxide 30 ml 03/11/19 21:44 03/11/19 23:24 Mylanta Suspension - PO 03/11/19 21:45 30 ml ONCE ONE Administration Famotidine/Sodium Chloride 20 mg in 50 mls @ 100 mls/hr 03/11/19 21:44 23:24 Pepcid 20 Mg Premixed Ivpb - IVPB 03/11/19 22:13 100 mls/hr ONCE ONE Administration Medical Decision Making - Medical Decision Making 03/11/19 17:30 EKG shows NSR, 63 bpm, no axis deviation, no ST elevation/depression, QTc 376. 03/11/19 18:27 48F presenting with substernal chest pressure radiating to the back that started around 1pm this afternoon. Reports that discomfort has mostly resolved on presentation. -cbc, cmp, lipase, coags, tsh -ekg, cxr, trop 03/11/19 19:00 CXR shows hypoventilatory exam with minimal bibasilar subsegmental atelectasis and slightly prominent bronchovascular markings in both lungs. Borderline cardiomegaly. No focal consolidation. No pleural effusion or pneumothorax. -CTA chest 03/11/19 19:31 Labs reviewed. Trop negative. Laboratory Tests 03/11/19 03/11/19 03/11/19 18:00 18:00 18:00 WBC 8.4 RBC 4.89 Hgb 11.1 Hct 34.3 MCV 70.1 L MCH 22.6 L MCHC 32.3 RDW 17.5 H Plt Count 343 MPV 8.3 Absolute Neuts (auto) 5.5 Neutrophils % 64.9 Lymphocytes % 24.8 Monocytes % 6.0 Eosinophils % 2.7 D Basophils % 1.6 Nucleated RBC % 0 PT with INR INR PTT (Actin FS) Sodium 140 Potassium 3.8 Chloride 109 H Carbon Dioxide 26 Anion Gap 5 L BUN 7.2 Creatinine 0.5 L Est GFR (CKD-EPI)AfAm 131.72 Est GFR (CKD-EPI)NonAf 113.65 Random Glucose 88 Calcium 8.2 L Total Bilirubin 0.2 AST 12 L ALT 12 L Alkaline Phosphatase 95 Creatine Kinase 112 Troponin I < 0.02 Total Protein 7.2 Albumin 3.4 Lipase 243 TSH 03/11/19 03/11/19 18:00 18:00 WBC RBC Hgb Hct MCV MCH MCHC RDW Plt Count MPV Absolute Neuts (auto) Neutrophils % Lymphocytes % Monocytes % Eosinophils % Basophils % Nucleated RBC % PT with INR 13.70 H INR 1.16 H PTT (Actin FS) 34.7 Sodium Potassium Chloride Carbon Dioxide Anion Gap BUN Creatinine Est GFR (CKD-EPI)AfAm Est GFR (CKD-EPI)NonAf Random Glucose Calcium Total Bilirubin AST ALT Alkaline Phosphatase Creatine Kinase Troponin I Total Protein Albumin Lipase TSH 0.74 03/11/19 22:10 Repeat labs reviewed. Laboratory Last Values WBC 8.4 K/mm3 (4.0-10.0) 03/11/19 18:00 RBC 4.89 M/mm3 (3.60-5.2) 03/11/19 18:00 Hgb 11.1 GM/dL (10.7-15.3) 03/11/19 18:00 Hct 34.3 % (32.4-45.2) 03/11/19 18:00 MCV 70.1 fl (80-96) L 03/11/19 18:00 MCH 22.6 pg (25.7-33.7) L 03/11/19 18:00 MCHC 32.3 g/dl (32.0-36.0) 03/11/19 18:00 RDW 17.5 % (11.6-15.6) H 03/11/19 18:00 Plt Count 343 K/MM3 (134-434) 03/11/19 18:00 MPV 8.3 fl (7.5-11.1) 03/11/19 18:00 Absolute Neuts (auto) 5.5 K/mm3 (1.5-8.0) 03/11/19 18:00 Neutrophils % 64.9 % (42.8-82.8) 03/11/19 18:00 Lymphocytes % 24.8 % (8-40) 03/11/19 18:00 Monocytes % 6.0 % (3.8-10.2) 03/11/19 18:00 Eosinophils % 2.7 % (0-4.5) D 03/11/19 18:00 Basophils % 1.6 % (0-2.0) 03/11/19 18:00 Nucleated RBC % 0 % (0-0) 03/11/19 18:00 PT with INR 13.70 SEC (9.7-13.0) H 03/11/19 18:00 INR 1.16 (0.83-1.09) H 03/11/19 18:00 PTT (Actin FS) 34.7 SECONDS (25.2-36.5) 03/11/19 18:00 Sodium 140 mmol/L (136-145) 03/11/19 18:00 Potassium 3.8 mmol/L (3.5-5.1) 03/11/19 18:00 Chloride 109 mmol/L (98-107) H 03/11/19 18:00 Carbon Dioxide 26 mmol/L (21-32) 03/11/19 18:00 Anion Gap 5 MMOL/L (8-16) L 03/11/19 18:00 BUN 7.2 mg/dL (7-18) 03/11/19 18:00 Creatinine 0.5 mg/dL (0.55-1.3) L 03/11/19 18:00 Est GFR (CKD-EPI)AfAm 131.72 03/11/19 18:00 Est GFR (CKD-EPI)NonAf 113.65 03/11/19 18:00 Random Glucose 88 mg/dL (74-106) 03/11/19 18:00 Calcium 8.2 mg/dL (8.5-10.1) L 03/11/19 18:00 Total Bilirubin 0.2 mg/dL (0.2-1) 03/11/19 18:00 AST 12 U/L (15-37) L 03/11/19 18:00 ALT 12 U/L (13-61) L 03/11/19 18:00 Alkaline Phosphatase 95 U/L (45-117) 03/11/19 18:00 Creatine Kinase 112 U/L (26-192) 03/11/19 18:00 Troponin I < 0.02 ng/ml (0.00-0.05) 03/11/19 20:59 Total Protein 7.2 g/dl (6.4-8.2) 03/11/19 18:00 Albumin 3.4 g/dl (3.4-5.0) 03/11/19 18:00 Lipase 243 U/L (73-393) 03/11/19 18:00 TSH 0.74 uIU/ml (0.358-3.74) 03/11/19 18:00 Serum , Qual Negative 03/11/19 18:00 03/12/19 00:06 Pt signed out to Dr[address] Huertas. Discharge - Discharge Information Problems reviewed: Yes Clinical Impression/Diagnosis: Gastritis Qualifiers: Gastritis type: unspecified gastritis Chronicity: acute Gastritis bleeding: without bleeding Qualified Code(s): K29.00 - Acute gastritis without bleeding Condition: Stable Disposition: HOME - Follow up/Referral Referrals: Rajesh Edwards MD [Staff Physician] - Ramu Mckeon MD [Primary Care Provider] - - Patient Discharge Instructions Patient Printed Discharge Instructions: Gastritis (Alternative Therapy), DI for Gastritis, DI for Atypical Chest Pain Additional Instructions: Thank you for coming in to the ER today Please make a follow up appointment with your primary doctor in 1 week. It may be a good idea to also follow up with a gastrointestinal specialist Please review your CT scan results (your were given a copy). Please give this to your primary care physician Please try over the counter Pepcid as needed for any acid reflux discomfort. If you experience any new, worsening, or concerning symptoms, including severe chest pain, difficulty breathing, severe back pain, or any other concerns, please return to the emergency department. - Post Discharge Activity
[2019-03-11 18:31] LABS: BASO % 1.6 % (0-2.0); EOS % 2.7 % (0-4.5); HEMATOCRIT 34.3 % (32.4-45.2); HEMOGLOBIN 11.1 GM/dL (10.7-15.3); LYMPH % 24.8 % (8-40); MCH 22.6 pg (25.7-33.7); MCHC 32.3 g/dl (32.0-36.0); MEAN CELL VOLUME 70.1 fl (80-96); MEAN PLT VOLUME 8.3 fl (7.5-11.1); NEUT % 64.9 % (42.8-82.8); PLATELET COUNT 343 K/MM3 (134-434); RBC 4.89 M/mm3 (3.60-5.2); RDW 17.5 % (11.6-15.6); WHITE BLOOD COUNT 8.4 K/mm3 (4.0-10.0)
[2019-03-11 18:35] LABS: INR 1.16 (0.83-1.09); PROTHROMBIN TIME (PATIENT) 13.7 SEC (9.7-13.0)
[2019-03-11 18:38] LABS: ACTIVATED PTT 34.7 SECONDS (25.2-36.5)
[2019-03-11 18:48] LABS: ALBUMIN 3.4 g/dl (3.4-5.0); BILIRUBIN,TOTAL 0.2 mg/dL (0.2-1); BLOOD UREA NITROGEN 7.2 mg/dL (7-18); CALCIUM 8.2 mg/dL (8.5-10.1); CREATININE 0.5 mg/dL (0.55-1.3); POTASSIUM 3.8 mmol/L (3.5-5.1); TOT PROT 7.2 g/dl (6.4-8.2)
[2019-03-11] MEDS ORDERED: FAMOTIDINE 20 MG/50 ML IVPB 20 MG/50 ML MG IVPB ONE ×2 (21:44→23:05)
[2019-03-11] MEDS ORDERED: MAG HYDROX/AL HYDROX/SIMETH -MYLANTA- ORAL SUSPENSION PO ONE (21:44)
[2019-03-11] MEDS ORDERED: MAG HYDROX/AL HYDROX/SIMETH 30 ML UNIT-DOSE CUP ONE (23:05)
[2019-03-12 02:26] VITALS: BP 126/75; PULSE 74; TEMP 97.8
--- NOTE | 2019-03-13 10:45 | EKG ---
Test Reason : Blood Pressure : / mmHG Vent. Rate : 063 BPM Atrial Rate : 063 BPM P-R Int : 166 ms QRS Dur : 074 ms QT Int : 368 ms P-R-T Axes : 064 023 046 degrees QTc Int : 376 ms NORMAL SINUS RHYTHM NORMAL ECG WHEN COMPARED WITH ECG OF 15-FEB-2017 10:40, NO SIGNIFICANT CHANGE WAS FOUND Confirmed by PEYTON BURNS MD ([id number]) on 03/13/2019 10:45:02 AM Referred By: Confirmed By:PEYTON BURNS MD
== END 2019-03-12 02:26 | disposition home or self-care (01) ==
LOC: JER 17:17
PROC: 3E033GC Introduction of Other Therapeutic Substance into Peripheral Vein, Percutaneous Approach (ICD-10-PCS; principal; 2019-03-11)
DX: K29.00 Acute gastritis without bleeding (principal); Z98.84 Bariatric surgery status; Z98.51 Tubal ligation status
CPT/HCPCS: 36415; 71046-TC-FY; 71275-TC; 74174-TC; 80053; 82550; 83690; 84443; 84484; 84703; 85025; 85610; 85730; 93005; 93010; 99283-25

== ENCOUNTER 2021-08-14 04:13 | Day surgery (SDC) | payer OTHER ==
[2021-08-08 16:15] VITALS: BMI 36.2
[2021-08-14 12:06] VITALS: TEMP 98
[2021-08-14 12:47] VITALS: BP 140/88; PULSE 73
== END 2021-08-14 13:10 | disposition home or self-care (01) ==
LOC: JASU-ENDO 04:13
PROVIDERS: ATTEND Internal Medicine Gastroenterology
PROC: 0DJD8ZZ Inspection of Lower Intestinal Tract, Via Natural or Artificial Opening Endoscopic (ICD-10-PCS; principal; 2021-08-14 10:45)
DX: Z12.11 Encounter for screening for malignant neoplasm of colon (principal); K57.30 Diverticulosis of large intestine without perforation or abscess without bleeding; K64.8 Other hemorrhoids
CPT/HCPCS: 81025

== ENCOUNTER 2022-05-26 16:29 | Emergency (ER) | payer OTHER ==
[2022-05-26 16:40] VITALS: TEMP 98.2; BMI 36.4
[2022-05-26] MEDS ORDERED: morphine CARPU-JECT 4 MG/1 ML DISP.SYRIN IVPUSH ONE (17:25)
[2022-05-26] MEDS ORDERED: SODIUM CHLORIDE 1,000 ML IV STA (17:25)
[2022-05-26] MEDS ORDERED: ONDANSETRON 4 MG/2 ML VIAL IVPUSH ONE ×2 (17:25→22:01)
[2022-05-26] MEDS ORDERED: ONDANSETRON 4 MG/2 ML VIAL ONE ×2 (17:31→22:05)
[2022-05-26] MEDS ORDERED: morphine SULFATE 4 MG/ML VIAL ONE (17:31)
[2022-05-26 18:20] LABS: BASO % 0.5 % (0-2.0); EOS % 1.4 % (0-4.5); HEMATOCRIT 37.3 % (32.4-45.2); HEMOGLOBIN 12.6 GM/dL (10.7-15.3); LYMPH % 18.4 % (8-40); MCH 23.5 pg (25.7-33.7); MCHC 33.7 g/dl (32.0-36.0); MEAN CELL VOLUME 69.8 fl (80-96); MEAN PLT VOLUME 8.8 fl (7.5-11.1); MONO % 7.6 % (3.8-10.2); NEUT % 72.1 % (42.8-82.8); PLATELET COUNT 359 10^3/uL (134-434); RBC 5.35 M/mm3 (3.60-5.2); RDW 19.8 % (11.6-15.6); WHITE BLOOD COUNT 10.9 K/mm3 (4.0-10.0)
[2022-05-26 18:35] LABS: EPI CELLS >36 /uL (0-25.1); HCG,QUALITATIVE URINE Negative; HYALINE CASTS 3 /uL (0-3.1); URINE APPEARANCE TURBID; URINE BACTERIA 214 /uL (0-1359); URINE BILIRUBIN NEGATIVE (NEGATIVE); URINE COLOR YELLOW; URINE GLUCOSE (UA) NEGATIVE (NEGATIVE); URINE KETONE NEGATIVE (NEGATIVE); URINE LEUK ESTERASE 3+ (NEGATIVE); URINE NITRITE NEGATIVE (NEGATIVE); URINE PROTEIN 1+ (NEGATIVE); URINE RBC 140 /uL (0-23.9); URINE UROBILINOGEN 0.2 mg/dL (0.2-1.0); URINE WBC 5601 /uL (0-25.8)
[2022-05-26 18:41] LABS: ALBUMIN 3.6 g/dl (3.4-5.0); BLOOD UREA NITROGEN 8.6 mg/dL (7-18)
[2022-05-26 18:44] LABS: CREATININE 0.8 mg/dL (0.55-1.3)
[2022-05-26 18:46] LABS: BILIRUBIN,TOTAL 0.4 mg/dL (0.2-1); TOT PROT 7.7 g/dl (6.4-8.2)
[2022-05-26] MEDS ORDERED: KETOROLAC TROMETHAMINE 30 MG/1 ML VIAL IVPUSH ONE (22:01)
[2022-05-26] MEDS ORDERED: KETOROLAC TROMETHAMINE 30 MG/1 ML VIAL ONE (22:05)
[2022-05-26 22:30] LABS: YEAST NONE SEEN (NEGATIVE)
[2022-05-26 22:49] VITALS: BP 124/77; PULSE 71; RESP 16
== END 2022-05-26 23:49 | disposition home or self-care (01) ==
LOC: JER 16:29
PROC: 3E0333Z Introduction of Anti-inflammatory into Peripheral Vein, Percutaneous Approach (ICD-10-PCS; principal; 2022-05-26)
PROC: 3E033NZ Introduction of Analgesics, Hypnotics, Sedatives into Peripheral Vein, Percutaneous Approach (ICD-10-PCS; 2022-05-26)
PROC: 3E033GC Introduction of Other Therapeutic Substance into Peripheral Vein, Percutaneous Approach (ICD-10-PCS; 2022-05-26)
PROC: 3E033GC Introduction of Other Therapeutic Substance into Peripheral Vein, Percutaneous Approach (ICD-10-PCS; 2022-05-26)
PROC: 3E0337Z Introduction of Electrolytic and Water Balance Substance into Peripheral Vein, Percutaneous Approach (ICD-10-PCS; 2022-05-26)
DX: N13.1 Hydronephrosis with ureteral stricture, not elsewhere classified (principal); N76.0 Acute vaginitis
CPT/HCPCS: 36415; 74176-TC; 76830-TC; 80053; 81003; 83690; 84703; 85025; 87070; 87077; 87086; 87205; 87491; 87591; 87661; 99285-25

== ENCOUNTER 2022-07-20 09:19 | Observation (INO) | payer OTHER ==
[2022-07-20] MEDS ORDERED: FAMOTIDINE 20 MG/50 ML IVPB 20 MG/50 ML MG IVPB ONE ×2 (09:59→10:48)
[2022-07-20] MEDS ORDERED: MAG HYDROX/AL HYDROX/SIMETH -MYLANTA- ORAL SUSPENSION PO ONE (09:59)
[2022-07-20] MEDS ORDERED: ACETAMINOPHEN 1000 MG/100 ML BAG IVPB ONE (10:00)
[2022-07-20 10:42] LABS: EOS % 1.1 % (0-4.5); HEMOGLOBIN 12.7 GM/dL (10.7-15.3); LYMPH % 16.3 % (8-40); MCH 24.6 pg (25.7-33.7); MCHC 35.2 g/dl (32.0-36.0); MEAN CELL VOLUME 69.7 fl (80-96); MEAN PLT VOLUME 8.2 fl (7.5-11.1); MONO % 5.7 % (3.8-10.2); NEUT % 75.9 % (42.8-82.8); PLATELET COUNT 340 10^3/uL (134-434); RBC 5.16 M/mm3 (3.60-5.2); RDW 19.3 % (11.6-15.6); WHITE BLOOD COUNT 12.8 K/mm3 (4.0-10.0)
[2022-07-20] MEDS ORDERED: MAG HYDROX/AL HYDROX/SIMETH 30 ML UNIT-DOSE CUP ONE (10:48)
[2022-07-20] MEDS ORDERED: ACETAMINOPHEN INJECTION 100 ML IVPB ONE (10:48)
[2022-07-20 10:53] LABS: ALBUMIN 3.3 g/dl (3.4-5.0)
[2022-07-20 10:54] LABS: BLOOD UREA NITROGEN 5.8 mg/dL (7-18); MAGNESIUM 2.3 mg/dL (1.8-2.4)
[2022-07-20 10:56] LABS: CREATININE 0.7 mg/dL (0.55-1.3)
[2022-07-20 10:58] LABS: BILIRUBIN,TOTAL 0.7 mg/dL (0.2-1); TOT PROT 7.8 g/dl (6.4-8.2)
[2022-07-20] MEDS ORDERED: CEFTRIAXONE 1,000 MG in DEXTROSE 5%-WATER - 50 ML IVPB ONE (14:47)
[2022-07-20] MEDS ORDERED: SODIUM CHLORIDE 1,000 ML IV SCH (15:30)
[2022-07-20] MEDS ORDERED: POTASSIUM CHLORIDE ORAL LIQUID 20 MEQ/15 ML PO ONE (15:44)
[2022-07-20] MEDS ORDERED: POTASSIUM CHLORIDE TABS 20 MEQ TABLET.ER (FP) PO ONE (15:50)
[2022-07-20] MEDS ORDERED: CEFTRIAXONE 2 GM/100 ML BAG IVPB ONE (15:51)
[2022-07-20] MEDS ORDERED: KETOROLAC TROMETHAMINE 30 MG/1 ML VIAL IVPUSH PRN (16:03)
[2022-07-20] MEDS ORDERED: ACETAMINOPHEN 325 MG TABLET (FP) PO PRN (16:03)
[2022-07-20] MEDS ORDERED: TRIMETHOBENZAMIDE HCL 200MG/2ML INJ IM PRN (16:11)
[2022-07-20] MEDS ORDERED: POLYETHYLENE GLYCOL (HEALTHYLAX) 3350 17 GM PACKET ONE (20:47)
[2022-07-20] MEDS: POLYETHYLENE GLYCOL (HEALTHYLAX) 3350 17 GM PACKET PO SCH (20:53)
[2022-07-20] MEDS: SODIUM CHLORIDE 1,000 ML IV SCH (20:53)
[2022-07-21 03:06] LABS: PH,URINE 7.5 (5.0-8.0); URINE APPEARANCE CLEAR; URINE BILIRUBIN NEGATIVE (NEGATIVE); URINE COLOR YELLOW; URINE GLUCOSE (UA) NEGATIVE (NEGATIVE); URINE KETONE NEGATIVE (NEGATIVE); URINE LEUK ESTERASE NEGATIVE (NEGATIVE); URINE NITRITE NEGATIVE (NEGATIVE); URINE PROTEIN NEGATIVE (NEGATIVE)
[2022-07-21 04:02] VITALS: RESP 18; BMI 37.8
[2022-07-21] MEDS: SODIUM CHLORIDE 1,000 ML IV SCH ×2 (04:19→17:55)
[2022-07-21 08:57] LABS: HEMATOCRIT 32.5 % (32.4-45.2); HEMOGLOBIN 11.1 GM/dL (10.7-15.3); MCH 24.2 pg (25.7-33.7); MCHC 34.1 g/dl (32.0-36.0); MEAN CELL VOLUME 70.9 fl (80-96); MEAN PLT VOLUME 8.5 fl (7.5-11.1); PLATELET COUNT 308 10^3/uL (134-434); RBC 4.58 M/mm3 (3.60-5.2); RDW 19.8 % (11.6-15.6); WHITE BLOOD COUNT 7.9 K/mm3 (4.0-10.0)
[2022-07-21 09:25] LABS: BLOOD UREA NITROGEN 3.8 mg/dL (7-18); CALCIUM 7.8 mg/dL (8.5-10.1); MAGNESIUM 1.8 mg/dL (1.8-2.4)
[2022-07-21 09:28] LABS: CREATININE 0.5 mg/dL (0.55-1.3); PHOSPHOROUS 2.4 mg/dL (2.5-4.9)
[2022-07-21 09:30] LABS: BILIRUBIN,TOTAL 0.5 mg/dL (0.2-1); TOT PROT 6.3 g/dl (6.4-8.2)
[2022-07-21 10:00] LABS: ALBUMIN 2.6 g/dl (3.4-5.0)
[2022-07-21] MEDS: POLYETHYLENE GLYCOL (HEALTHYLAX) 3350 17 GM PACKET PO SCH ×3 (11:14→22:07)
[2022-07-21] MEDS: ENOXAPARIN NA (PORCINE) 40 MG/0.4 ML DISP.SYRIN SQ SCH (11:15)
[2022-07-21] MEDS: CEFTRIAXONE 2 GM in DEXTROSE 5%-WATER 100 ML IVPB SCH (12:19)
[2022-07-21] MEDS ORDERED: NAPH,MB-DB/K PH,MBDB POWDER PACKET PO ONE (12:47)
[2022-07-21] MEDS ORDERED: SENNOSIDES 8.8 MG/5 ML SYRUP PO SCH (22:00)
[2022-07-22 08:49] VITALS: TEMP 98.2
[2022-07-22 08:56] LABS: BASO % 0.9 % (0-2.0); HEMATOCRIT 36.6 % (32.4-45.2); HEMOGLOBIN 12.6 GM/dL (10.7-15.3); LYMPH % 34.4 % (8-40); MCH 24.2 pg (25.7-33.7); MCHC 34.4 g/dl (32.0-36.0); MEAN CELL VOLUME 70.4 fl (80-96); MEAN PLT VOLUME 8.9 fl (7.5-11.1); MONO % 6.8 % (3.8-10.2); NEUT % 50.9 % (42.8-82.8); PLATELET COUNT 375 10^3/uL (134-434); RBC 5.21 M/mm3 (3.60-5.2); RDW 19.5 % (11.6-15.6)
[2022-07-22 09:21] LABS: CHLORIDE 104 mmol/L (98-107); SODIUM 138 mmol/L (136-145)
[2022-07-22 09:31] LABS: ANION GAP 5 MMOL/L (8-16); CO2 28 mmol/L (21-32); GLUCOSE,RANDOM 85 mg/dL (74-106)
[2022-07-22 09:34] LABS: CREATININE 0.5 mg/dL (0.55-1.3); PHOSPHOROUS 3.1 mg/dL (2.5-4.9); SGOT/AST 35 U/L (15-37); SGPT/ALT 47 U/L (13-61)
[2022-07-22 09:35] LABS: BILIRUBIN,TOTAL 0.6 mg/dL (0.2-1); TOT PROT 7.7 g/dl (6.4-8.2)
[2022-07-22 09:36] LABS: ALK PHOS 147 U/L (45-117)
[2022-07-22] MEDS: POLYETHYLENE GLYCOL (HEALTHYLAX) 3350 17 GM PACKET PO SCH (09:41)
[2022-07-22] MEDS: ENOXAPARIN NA (PORCINE) 40 MG/0.4 ML DISP.SYRIN SQ SCH (09:41)
[2022-07-22] MEDS: CEFTRIAXONE 2 GM in DEXTROSE 5%-WATER 100 ML IVPB SCH (09:41)
[2022-07-22 09:47] LABS: ALBUMIN 3.2 g/dl (3.4-5.0); BLOOD UREA NITROGEN 2.4 mg/dL (7-18)
[2022-07-22 14:49] VITALS: BP 142/84; PULSE 84
== END 2022-07-22 15:14 | disposition home or self-care (01) ==
LOC: JER 09:19 → INTOOBSV 15:27 → UNDOADMOB 15:27 → JERBED 15:27 → J7W 07-21 03:49
PROVIDERS: ADMIT Internal Medicine
PROC: 3E033NZ Introduction of Analgesics, Hypnotics, Sedatives into Peripheral Vein, Percutaneous Approach (ICD-10-PCS; principal; 2022-07-20)
PROC: 3E03329 Introduction of Other Anti-infective into Peripheral Vein, Percutaneous Approach (ICD-10-PCS; 2022-07-20)
PROC: 3E023GC Introduction of Other Therapeutic Substance into Muscle, Percutaneous Approach (ICD-10-PCS; 2022-07-20)
PROC: 3E033GC Introduction of Other Therapeutic Substance into Peripheral Vein, Percutaneous Approach (ICD-10-PCS; 2022-07-20)
DX: K57.92 Diverticulitis of intestine, part unspecified, without perforation or abscess without bleeding (principal); N20.0 Calculus of kidney; K21.9 Gastro-esophageal reflux disease without esophagitis; E66.01 Morbid (severe) obesity due to excess calories; Z68.37 Body mass index [BMI] 37.0-37.9, adult; Z98.84 Bariatric surgery status; Z91.018 Allergy to other foods; K59.00 Constipation, unspecified; E87.6 Hypokalemia; Z29.8 Encounter for other specified prophylactic measures
CPT/HCPCS: 0241U-QW; 36415; 71045-TC-FY; 74177-TC; 80053; 81003; 83690; 83735; 84100; 84484; 84703; 85025; 85027; 87040; 87086; 93005; 93010; 97116-GP; 97161-GP; 99285-25; G0378; Q9967

== ENCOUNTER 2022-10-22 05:24 | Day surgery (SDC) | payer OTHER ==
[2022-10-21 13:27] VITALS: BMI 36.8
[2022-10-22 09:54] VITALS: TEMP 97.1
[2022-10-22 12:05] VITALS: BP 124/78; PULSE 65; RESP 12
== END 2022-10-22 11:41 | disposition home or self-care (01) ==
LOC: JASU-ENDO 05:24
PROVIDERS: ATTEND Internal Medicine Gastroenterology
PROC: 0DJD8ZZ Inspection of Lower Intestinal Tract, Via Natural or Artificial Opening Endoscopic (ICD-10-PCS; principal; 2022-10-22 08:00)
DX: K57.30 Diverticulosis of large intestine without perforation or abscess without bleeding (principal); K64.8 Other hemorrhoids
CPT/HCPCS: 36415; 84702

== ENCOUNTER 2023-12-30 19:49 | Inpatient (IN) | payer OTHER ==
[2023-12-30 19:55] VITALS: BMI 35.6
[2023-12-30] MEDS ORDERED: ACETAMINOPHEN 325 MG TABLET (FP) ONE (20:48)
[2023-12-30] MEDS: ACETAMINOPHEN 500 MG TABLET (FP) PO ONE (21:12)
[2023-12-30] MEDS: SODIUM CHLORIDE 0.9% 500 ML INFUS.BAG IV ONE (21:12)
[2023-12-30 21:15] LABS: BASO % 1.1 % (0-2.0); EOS % 3.1 % (0-4.5); HEMATOCRIT 32.9 % (32.4-45.2); HEMOGLOBIN 10.9 GM/dL (10.7-15.3); LYMPH % 23.8 % (8-40); MCH 25.3 pg (25.7-33.7); MEAN CELL VOLUME 76.6 fl (80-96); MEAN PLT VOLUME 7.5 fl (7.5-11.1); MONO % 5.9 % (3.8-10.2); NEUT % 66.1 % (42.8-82.8); PLATELET COUNT 414 10^3/uL (134-434); RDW 17.4 % (11.6-15.6); WHITE BLOOD COUNT 8.4 K/mm3 (4.0-10.0)
[2023-12-30 21:22] LABS: INR 1.09 (0.83-1.09); PROTHROMBIN TIME (PATIENT) 12.3 SEC (9.7-13.0)
[2023-12-30 21:24] LABS: ACTIVATED PTT 37.1 SECONDS (25.2-36.5)
[2023-12-30 21:47] LABS: POTASSIUM 3.3 mmol/L (3.5-5.1)
[2023-12-30 21:49] LABS: CALCIUM 8.6 mg/dL (8.5-10.1)
[2023-12-30 21:50] LABS: ALBUMIN 3.5 g/dl (3.4-5.0); BLOOD UREA NITROGEN 5.8 mg/dL (7-18)
[2023-12-30 21:53] LABS: CREATININE 0.6 mg/dL (0.55-1.3)
[2023-12-30 21:54] LABS: BILIRUBIN,TOTAL 0.3 mg/dL (0.2-1)
[2023-12-30 21:55] LABS: TOT PROT 6.8 g/dl (6.4-8.2)
[2023-12-30] MEDS ORDERED: ATORVASTATIN CA 80 MG TABLET (FP) ONE (22:08)
[2023-12-30] MEDS ORDERED: ASPIRIN 81 MG CHEWABLE TABLETS ONE (22:08)
[2023-12-30] MEDS: ATORVASTATIN CA 80 MG TABLET (FP) PO ONE (22:12)
[2023-12-30] MEDS: ASPIRIN 81 MG CHEWABLE TABLETS PO ONE (22:12)
[2023-12-30] MEDS ORDERED: HEPARIN NA (PORCINE) 5,000 UNITS/ML 1ML VIAL IVPUSH PRN ×2 (22:25)
[2023-12-30 22:32] LABS: HIV INTERPRETATION NEGATIVE (NEGATIVE)
[2023-12-30] MEDS ORDERED: HEPARIN INFUSION - 25,000 UNITS/500 ML INFUS.BAG IVPB ONE (22:48)
[2023-12-30] MEDS ORDERED: CLOPIDOGREL BISULFATE 300 MG TABLET ONE (22:48)
[2023-12-30] MEDS: HEPARIN - 25,000 UNIT in SODIUM CHLORIDE 495 ML IV SCH (23:07)
[2023-12-30] MEDS: CLOPIDOGREL BISULFATE 300 MG TABLET PO ONE (23:07)
[2023-12-31] MEDS: KCL 10 MEQ IVPB 10 MEQ/100 ML INFUS.BAG IVPB SCH (02:37)
[2023-12-31] MEDS: POTASSIUM CHLORIDE ORAL LIQUID 20 MEQ/15 ML PO ONE (02:37)
[2023-12-31 06:17] LABS: BASO % 0.8 % (0-2.0); EOS % 3.6 % (0-4.5); HEMATOCRIT 30.1 % (32.4-45.2); LYMPH % 40.5 % (8-40); MCH 25.3 pg (25.7-33.7); MCHC 33.2 g/dl (32.0-36.0); MEAN CELL VOLUME 76.3 fl (80-96); MEAN PLT VOLUME 7.9 fl (7.5-11.1); NEUT % 49.1 % (42.8-82.8); PLATELET COUNT 361 10^3/uL (134-434); RBC 3.95 M/mm3 (3.60-5.2); WHITE BLOOD COUNT 7.7 K/mm3 (4.0-10.0)
[2023-12-31 06:38] LABS: POTASSIUM 3.4 mmol/L (3.5-5.1)
[2023-12-31 06:41] LABS: ALBUMIN 3.2 g/dl (3.4-5.0); CALCIUM 8.3 mg/dL (8.5-10.1)
[2023-12-31 06:42] LABS: BLOOD UREA NITROGEN 3.6 mg/dL (7-18)
[2023-12-31 06:44] LABS: CREATININE 0.5 mg/dL (0.55-1.3)
[2023-12-31 06:45] LABS: PHOSPHOROUS 2.7 mg/dL (2.5-4.9)
[2023-12-31 06:46] LABS: TOT PROT 6.4 g/dl (6.4-8.2)
[2023-12-31 06:47] LABS: BILIRUBIN,TOTAL 0.6 mg/dL (0.2-1)
[2023-12-31 10:02] VITALS: BP 118/83; PULSE 66; RESP 18; TEMP 98.2
[2023-12-31] MEDS: CLOPIDOGREL BISULFATE 75 MG TABLET (FP) PO SCH (10:06)
[2023-12-31] MEDS: ASPIRIN 81 MG CHEWABLE TABLETS PO SCH (10:06)
[2023-12-31 12:11] LABS: INR 1.12 (0.83-1.09); PROTHROMBIN TIME (PATIENT) 12.8 SEC (9.7-13.0)
[2023-12-31 12:14] LABS: ACTIVATED PTT 65.1 SECONDS (25.2-36.5)
[2023-12-31] MEDS ORDERED: ATORVASTATIN CA 80 MG TABLET (FP) PO SCH (22:00)
== END 2023-12-31 17:00 | disposition short-term general hospital (02) | DRG 282 ==
LOC: JER 19:49 → JERBED 22:26 → OBSVTOIN 22:46 → J4S 12-31 01:27
PROVIDERS: ADMIT Student in an Organized Health Care Education/Training Program; ATTEND Internal Medicine
DX: I21.4 Non-ST elevation (NSTEMI) myocardial infarction (principal); E87.6 Hypokalemia; E66.9 Obesity, unspecified; Z68.35 Body mass index [BMI] 35.0-35.9, adult; E78.5 Hyperlipidemia, unspecified; I10 Essential (primary) hypertension; K21.9 Gastro-esophageal reflux disease without esophagitis; K76.0 Fatty (change of) liver, not elsewhere classified
CPT/HCPCS: 36415; 71046-TC-FY; 80053; 80061; 83036; 83735; 84100; 84484; 85025; 85610; 85730; 86803; 86850; 86900; 86901; 87389; 93005; 93010; 93306-TC; 99291; G0378; J1644

== ENCOUNTER 2024-06-28 13:37 | Observation (INO) | payer OTHER ==
[2024-06-28 15:22] LABS: HEMATOCRIT 38.8 % (34.1-44.9); HEMOGLOBIN 13.1 g/dL (11.2-15.7); MCHC 33.8 g/dl (32.2-35.5); MEAN PLT VOLUME 9.8 fl (9.4-12.3); PLATELET COUNT 362 x10^3/uL (182-369); RDW 18.8 % (12.3-16.6)
[2024-06-28 15:32] LABS: ACTIVATED PTT 37.5 SECONDS (25.2-36.5); INR 1.14 (0.83-1.09); PROTHROMBIN TIME (PATIENT) 12.4 SEC (9.7-13.0)
[2024-06-28 15:38] LABS: POTASSIUM 4.4 mmol/L (3.5-5.1)
[2024-06-28 15:40] LABS: CALCIUM 9.2 mg/dL (8.5-10.1)
[2024-06-28 15:41] LABS: ALBUMIN 3.8 g/dl (3.4-5.0); BLOOD UREA NITROGEN 10.6 mg/dL (7-18); MAGNESIUM 2.4 mg/dL (1.8-2.4)
[2024-06-28 15:44] LABS: CREATININE 0.7 mg/dL (0.55-1.3)
[2024-06-28 15:46] LABS: BILIRUBIN,TOTAL 0.5 mg/dL (0.2-1); TOT PROT 7.6 g/dl (6.4-8.2)
[2024-06-29 00:37] VITALS: BMI 37.3
[2024-06-29] MEDS: METOPROLOL TARTRATE 25 MG TABLET (FP) PO SCH (01:23)
[2024-06-29 08:31] LABS: HEMOGLOBIN 12.7 g/dL (11.2-15.7); MCHC 34.3 g/dl (32.2-35.5); MEAN CELL VOLUME 74.7 fl (79.4-94.8); MEAN PLT VOLUME 10.2 fl (9.4-12.3); PLATELET COUNT 334 x10^3/uL (182-369); RDW 18.6 % (12.3-16.6)
[2024-06-29 08:58] LABS: POTASSIUM 3.6 mmol/L (3.5-5.1)
[2024-06-29 09:09] LABS: BLOOD UREA NITROGEN 8.1 mg/dL (7-18); CALCIUM 8.8 mg/dL (8.5-10.1); MAGNESIUM 2.2 mg/dL (1.8-2.4)
[2024-06-29 09:10] LABS: ALBUMIN 3.3 g/dl (3.4-5.0)
[2024-06-29 09:13] LABS: BILIRUBIN,TOTAL 0.4 mg/dL (0.2-1); CREATININE 0.6 mg/dL (0.55-1.3); PHOSPHOROUS 3.9 mg/dL (2.5-4.9); TOT PROT 6.5 g/dl (6.4-8.2)
[2024-06-29] MEDS ORDERED: REGADENOSON 0.4 MG/5 ML PRE-FILLED SYRINGE IVPUSH ONE (09:44)
[2024-06-29] MEDS ORDERED: ENOXAPARIN NA (PORCINE) 40 MG/0.4 ML DISP.SYRIN SQ SCH (10:00)
[2024-06-29] MEDS: REGADENOSON 0.4 MG/5 ML PRE-FILLED SYRINGE IVPUSH ONE (11:42)
[2024-06-29] MEDS: guaiFENesin 600 MG TABLET.ER (FP) PO SCH (13:41)
[2024-06-29] MEDS: ASPIRIN 81 MG CHEWABLE TABLETS PO SCH (13:42)
[2024-06-29] MEDS: TICAGRELOR 90 MG TABLET PO SCH (13:43)
[2024-06-29 14:36] VITALS: BP 118/78; PULSE 72; RESP 18; TEMP 97.9
[2024-06-29] MEDS ORDERED: AMOX TR/POT CLAV 875MG/125MG TABLETS (FP) PO SCH (17:30)
[2024-06-29] MEDS ORDERED: ATORVASTATIN CA 40 MG TABLET (FP) PO SCH (22:00)
== END 2024-06-29 14:52 | disposition home or self-care (01) ==
LOC: JER 13:37 → JERBED 19:59 → UNDOADMOB 19:59 → INTOOBSV 19:59 → JERBED 06-29 00:19 → J8W 06-29 00:19 → JERBED 06-29 09:44 → J8W 06-29 09:44
PROVIDERS: ADMIT Internal Medicine; ATTEND Nurse Practitioner Acute Care
PROC: 3E033GC Introduction of Other Therapeutic Substance into Peripheral Vein, Percutaneous Approach (ICD-10-PCS; principal; 2024-06-29)
DX: I11.9 Hypertensive heart disease without heart failure (principal); E78.5 Hyperlipidemia, unspecified; R73.03 Prediabetes; K21.9 Gastro-esophageal reflux disease without esophagitis; Z95.5 Presence of coronary angioplasty implant and graft; Z98.84 Bariatric surgery status; I25.2 Old myocardial infarction; Z90.79 Acquired absence of other genital organ(s); R07.9 Chest pain, unspecified
CPT/HCPCS: 36415; 71046-TC-FY; 78452-TC; 80053; 82550; 82553; 83735; 84100; 84484; 85027; 85610; 85730; 93005; 93010; 93017; 96374; 99285-25; A9502; G0378; J2785

== ENCOUNTER 2024-09-15 08:39 | Inpatient (IN) | payer OTHER ==
[2024-09-15 08:46] VITALS: BMI 37.8
[2024-09-15] MEDS: ACETAMINOPHEN 1000 MG/100 ML BAG IVPB ONE (09:10)
[2024-09-15] MEDS ORDERED: ACETAMINOPHEN INJECTION 100 ML ONE (09:37)
[2024-09-15] MEDS ORDERED: KETOROLAC TROMETHAMINE 15 MG/ML VIAL ONE (09:52)
[2024-09-15] MEDS ORDERED: MORPHINE SULFATE 2 MG/ML SYRINGE ONE (09:53)
[2024-09-15 09:57] LABS: ABSOLUTE IMMATURE GRANULOCYTES 0.04 x10^3/uL (0.0-0.031); BASOPHILS # 0.06 x10^3/uL (0.01-0.08); EOSINOPHILS # 0.44 x10^3/uL (0.04-0.36); HEMATOCRIT 36.9 % (34.1-44.9); HEMOGLOBIN 12.6 g/dL (11.2-15.7); MCHC 34.1 g/dl (32.2-35.5); MEAN CELL VOLUME 77.4 fl (79.4-94.8); MEAN PLT VOLUME 9.8 fl (9.4-12.3); MONOCYTE # 0.29 x10^3/uL (0.24-0.86); MONOCYTE % 3.9 % (4.7-12.5); PLATELET COUNT 324 x10^3/uL (182-369); RDW 15.6 % (12.3-16.6)
[2024-09-15 10:04] LABS: INR 1.19 (0.83-1.09); PROTHROMBIN TIME (PATIENT) 13.1 SEC (9.7-13.0)
[2024-09-15] MEDS: morphine SULFATE 4 MG/ML VIAL IVPUSH ONE (10:05)
[2024-09-15 10:07] LABS: ACTIVATED PTT 35.1 SECONDS (25.2-36.5)
[2024-09-15 10:21] LABS: POTASSIUM 3.2 mmol/L (3.5-5.1)
[2024-09-15 10:23] LABS: CALCIUM 9.1 mg/dL (8.5-10.1)
[2024-09-15 10:24] LABS: ALBUMIN 3.4 g/dl (3.4-5.0); BLOOD UREA NITROGEN 9.1 mg/dL (7-18)
[2024-09-15 10:27] LABS: CREATININE 0.8 mg/dL (0.55-1.3)
[2024-09-15 10:28] LABS: BILIRUBIN,TOTAL 0.5 mg/dL (0.2-1)
[2024-09-15 10:29] LABS: TOT PROT 6.8 g/dl (6.4-8.2)
[2024-09-15 10:54] LABS: URINE APPEARANCE CLEAR; URINE COLOR RED; URINE GLUCOSE (UA) NEGATIVE (NEGATIVE)
[2024-09-15 10:55] LABS: URINE BILIRUBIN NEGATIVE (NEGATIVE); URINE PROTEIN 4+ (NEGATIVE)
[2024-09-15 10:56] LABS: URINE RBC 363 /uL (0-23.9); URINE WBC 0.2 /uL (0-25.8)
[2024-09-15 10:58] LABS: EPI CELLS 0.5 /uL (0-25.1); HYALINE CASTS 0 /uL (0-3.1); URINE BACTERIA 102.1 /uL (0-1359)
[2024-09-15] MEDS: POTASSIUM CHLORIDE TABS 20 MEQ TABLET.ER (FP) PO ONE (12:48)
[2024-09-15] MEDS: KETOROLAC TROMETHAMINE 15 MG/ML VIAL IVPUSH ONE (16:28)
[2024-09-15] MEDS ORDERED: METOPROLOL TARTRATE 25 MG TABLET (FP) ONE (23:44)
[2024-09-15] MEDS: METOPROLOL TARTRATE 25 MG TABLET (FP) PO SCH (23:45)
[2024-09-15] MEDS: SODIUM CHLORIDE 1,000 ML IV SCH (23:45)
[2024-09-16 08:36] LABS: ABSOLUTE IMMATURE GRANULOCYTES 0.02 x10^3/uL (0.0-0.031); BASOPHILS # 0.06 x10^3/uL (0.01-0.08); EOSINOPHIL % 5.3 % (0.7-5.8); EOSINOPHILS # 0.43 x10^3/uL (0.04-0.36); HEMATOCRIT 37.7 % (34.1-44.9); HEMOGLOBIN 12.9 g/dL (11.2-15.7); MCHC 34.2 g/dl (32.2-35.5); MEAN CELL VOLUME 76.6 fl (79.4-94.8); MEAN PLT VOLUME 10.2 fl (9.4-12.3); MONOCYTE # 0.45 x10^3/uL (0.24-0.86); MONOCYTE % 5.5 % (4.7-12.5); PLATELET COUNT 343 x10^3/uL (182-369); RDW 15.4 % (12.3-16.6)
[2024-09-16 08:50] LABS: POTASSIUM 3.6 mmol/L (3.5-5.1)
[2024-09-16 08:57] LABS: ALBUMIN 3.4 g/dl (3.4-5.0); PHOSPHOROUS 3.3 mg/dL (2.5-4.9)
[2024-09-16 08:58] LABS: BILIRUBIN,TOTAL 0.4 mg/dL (0.2-1)
[2024-09-16 08:59] LABS: CALCIUM 9.2 mg/dL (8.5-10.1); TOT PROT 6.8 g/dl (6.4-8.2)
[2024-09-16 09:00] LABS: CREATININE 0.6 mg/dL (0.55-1.3)
[2024-09-16] MEDS: FERROUS SO4 325 MG TABLET (FP) PO SCH (09:18)
[2024-09-16] MEDS: ASPIRIN 81 MG CHEWABLE TABLETS PO SCH (09:18)
[2024-09-16] MEDS: ATORVASTATIN CA 40 MG TABLET (FP) PO SCH (21:05)
[2024-09-16] MEDS: ACETAMINOPHEN 1000 MG/100 ML BAG IVPB PRN (21:05)
[2024-09-17] MEDS: HYDROmorphone HCL CARPU-JECT 2 MG/1 ML DISP.SYRIN IVPUSH ONE (05:43)
[2024-09-17 08:03] LABS: ABSOLUTE IMMATURE GRANULOCYTES 0.07 x10^3/uL (0.0-0.031); BASOPHILS # 0.05 x10^3/uL (0.01-0.08); EOSINOPHIL % 0.2 % (0.7-5.8); EOSINOPHILS # 0.02 x10^3/uL (0.04-0.36); HEMATOCRIT 37.2 % (34.1-44.9); HEMOGLOBIN 12.7 g/dL (11.2-15.7); MCHC 34.1 g/dl (32.2-35.5); MEAN PLT VOLUME 10.4 fl (9.4-12.3); MONOCYTE # 0.52 x10^3/uL (0.24-0.86); MONOCYTE % 4.2 % (4.7-12.5); PLATELET COUNT 329 x10^3/uL (182-369); RDW 15.4 % (12.3-16.6)
[2024-09-17 08:29] LABS: POTASSIUM 3.4 mmol/L (3.5-5.1)
[2024-09-17 08:30] LABS: BLOOD UREA NITROGEN 5.8 mg/dL (7-18); CALCIUM 9.1 mg/dL (8.5-10.1)
[2024-09-17 08:34] LABS: CREATININE 0.8 mg/dL (0.55-1.3)
[2024-09-17] MEDS: POTASSIUM CHLORIDE ORAL LIQUID 20 MEQ/15 ML PO ONE (11:03)
[2024-09-17] MEDS: ONDANSETRON 4 MG/2 ML VIAL IVPUSH PRN (11:52)
[2024-09-17] MEDS: ACETAMINOPHEN 1000 MG/100 ML BAG IVPB SCH (11:55)
[2024-09-17] MEDS: DEXTROSE 5%-LACTATED RINGERS 1,000 ML IV SCH (12:32)
[2024-09-17] MEDS: ASPIRIN 81 MG CHEWABLE TABLETS PO SCH (12:41)
[2024-09-17 15:18] LABS: EPI CELLS 18 /uL (0-25.1); HYALINE CASTS 1 /uL (0-3.1); PH,URINE 6.5 (5.0-8.0); URINE APPEARANCE CLEAR; URINE BACTERIA 421 /uL (0-1359); URINE BILIRUBIN NEGATIVE (NEGATIVE); URINE COLOR YELLOW; URINE GLUCOSE (UA) NEGATIVE (NEGATIVE); URINE KETONE NEGATIVE (NEGATIVE); URINE LEUK ESTERASE NEGATIVE (NEGATIVE); URINE NITRITE NEGATIVE (NEGATIVE); URINE PROTEIN NEGATIVE (NEGATIVE); URINE RBC 2315 /uL (0-23.9); URINE UROBILINOGEN 0.2 mg/dL (0.2-1.0); URINE WBC 23 /uL (0-25.8)
[2024-09-17] MEDS: SODIUM CHLORIDE 1,000 ML IV SCH (15:22)
[2024-09-17] MEDS ORDERED: DEXTROSE 50%-WATER - 25 GM/50 ML VIAL IVPUSH PRN (18:03)
[2024-09-17] MEDS: CEFTRIAXONE 1 GM in DEXTROSE 5%-WATER - 50 ML IVPB SCH (21:11)
[2024-09-18 08:50] LABS: HEMATOCRIT 35.9 % (34.1-44.9); HEMOGLOBIN 12.5 g/dL (11.2-15.7); MCHC 34.8 g/dl (32.2-35.5); MEAN CELL VOLUME 75.6 fl (79.4-94.8); MEAN PLT VOLUME 10.4 fl (9.4-12.3); PLATELET COUNT 333 x10^3/uL (182-369); RDW 15.3 % (12.3-16.6)
[2024-09-18] MEDS: ACETAMINOPHEN 500 MG TABLET (FP) PO ONE (08:54)
[2024-09-18 09:15] LABS: POTASSIUM 3.5 mmol/L (3.5-5.1)
[2024-09-18] MEDS: METOPROLOL TARTRATE 25 MG TABLET (FP) PO SCH (09:17)
[2024-09-18] MEDS: FERROUS SO4 325 MG TABLET (FP) PO SCH (09:18)
[2024-09-18 09:23] LABS: ALBUMIN 3.4 g/dl (3.4-5.0); BLOOD UREA NITROGEN 7.2 mg/dL (7-18)
[2024-09-18 09:24] LABS: BILIRUBIN,TOTAL 0.6 mg/dL (0.2-1); TOT PROT 6.8 g/dl (6.4-8.2)
[2024-09-18 09:25] LABS: CALCIUM 9.5 mg/dL (8.5-10.1)
[2024-09-18] MEDS ORDERED: DEXTROSE 5%-NORMAL SALINE 1,000 ML IV SCH (15:45)
[2024-09-18] MEDS: DEXTROSE 5%-NORMAL SALINE 1,000 ML IV SCH (16:41)
[2024-09-18] MEDS: ACETAMINOPHEN 1000 MG/100 ML BAG IVPB PRN (18:57)
[2024-09-18] MEDS: ATORVASTATIN CA 40 MG TABLET (FP) PO SCH (22:06)
[2024-09-19 09:10] LABS: HEMATOCRIT 38.6 % (34.1-44.9); HEMOGLOBIN 13.2 g/dL (11.2-15.7); MCHC 34.2 g/dl (32.2-35.5); MEAN CELL VOLUME 76.7 fl (79.4-94.8); MEAN PLT VOLUME 10.5 fl (9.4-12.3); PLATELET COUNT 335 x10^3/uL (182-369); RDW 15.6 % (12.3-16.6)
[2024-09-19 09:39] LABS: POTASSIUM 3.5 mmol/L (3.5-5.1)
[2024-09-19 09:53] LABS: ALBUMIN 3.5 g/dl (3.4-5.0); BLOOD UREA NITROGEN 6.9 mg/dL (7-18)
[2024-09-19 09:54] LABS: BILIRUBIN,TOTAL 0.6 mg/dL (0.2-1); CALCIUM 9.2 mg/dL (8.5-10.1)
[2024-09-19] MEDS ORDERED: PROPOFOL 20 ML ONE ×2 (12:26→12:44)
[2024-09-19] MEDS: ceFAZolin SODIUM 1 GM VIAL IVPB ONE (12:37)
[2024-09-19] MEDS: LACTATED RINGERS SOLUTION 1,000 ML IV SCH (13:20)
[2024-09-19] MEDS ORDERED: ONDANSETRON 4 MG/2 ML VIAL IVPUSH PRN (13:52)
[2024-09-19] MEDS ORDERED: DEXTROSE 50%-WATER - 25 GM/50 ML VIAL IVPUSH PRN (13:52)
[2024-09-19] MEDS: DEXTROSE 5%-NORMAL SALINE 1,000 ML IV SCH (14:10)
[2024-09-19] MEDS: ATORVASTATIN CA 40 MG TABLET (FP) PO SCH (21:18)
[2024-09-19] MEDS: METOPROLOL TARTRATE 25 MG TABLET (FP) PO SCH (21:18)
[2024-09-19] MEDS: PHENAZOPYRIDINE HCL 100 MG TABLET (FP) PO SCH (21:18)
[2024-09-20 09:12] LABS: ABSOLUTE IMMATURE GRANULOCYTES 0.08 x10^3/uL (0.0-0.031); BASOPHILS # 0.02 x10^3/uL (0.01-0.08); EOSINOPHIL % 0.1 % (0.7-5.8); EOSINOPHILS # 0.01 x10^3/uL (0.04-0.36); HEMATOCRIT 35.5 % (34.1-44.9); HEMOGLOBIN 12.2 g/dL (11.2-15.7); MCHC 34.4 g/dl (32.2-35.5); MEAN CELL VOLUME 76.5 fl (79.4-94.8); MEAN PLT VOLUME 10.5 fl (9.4-12.3); MONOCYTE # 0.75 x10^3/uL (0.24-0.86); MONOCYTE % 5.6 % (4.7-12.5); PLATELET COUNT 340 x10^3/uL (182-369); RDW 15.5 % (12.3-16.6)
[2024-09-20 09:26] LABS: POTASSIUM 3.6 mmol/L (3.5-5.1)
[2024-09-20 09:39] LABS: ALBUMIN 3.2 g/dl (3.4-5.0); BLOOD UREA NITROGEN 8.6 mg/dL (7-18); CALCIUM 9.5 mg/dL (8.5-10.1)
[2024-09-20 09:43] LABS: BILIRUBIN,TOTAL 0.5 mg/dL (0.2-1); TOT PROT 6.6 g/dl (6.4-8.2)
[2024-09-20] MEDS: FERROUS SO4 325 MG TABLET (FP) PO SCH (10:47)
[2024-09-20] MEDS: CEFTRIAXONE 1 GM in DEXTROSE 5%-WATER - 50 ML IVPB SCH (10:47)
[2024-09-20] MEDS: ASPIRIN 81 MG CHEWABLE TABLETS PO SCH (10:47)
[2024-09-20] MEDS: TICAGRELOR 90 MG TABLET PO SCH (13:29)
[2024-09-20 14:34] VITALS: BP 141/83; PULSE 63; RESP 16; TEMP 97.9
== END 2024-09-20 14:56 | disposition home or self-care (01) | DRG 696 ==
LOC: JER 08:39 → JERBED 18:43 → J6S 09-16 00:35 → OBSVTOIN 09-17 08:09 → J6S 09-18 12:05
PROVIDERS: ADMIT Internal Medicine; ATTEND Internal Medicine
PROC: BT1DZZZ Fluoroscopy of Right Kidney, Ureter and Bladder (ICD-10-PCS; 2024-09-19)
PROC: 0TJ98ZZ Inspection of Ureter, Via Natural or Artificial Opening Endoscopic (ICD-10-PCS; principal; 2024-09-19 12:00)
DX: R31.0 Gross hematuria (principal); E11.9 Type 2 diabetes mellitus without complications; I10 Essential (primary) hypertension; E78.5 Hyperlipidemia, unspecified; K21.9 Gastro-esophageal reflux disease without esophagitis; I25.10 Atherosclerotic heart disease of native coronary artery without angina pectoris; I25.2 Old myocardial infarction; N39.0 Urinary tract infection, site not specified
CPT/HCPCS: 36415; 71045-TC-FY; 74176-TC; 74177-TC; 76000-TC-FY; 76775-TC; 80048; 80053; 81003; 82728; 82962; 83540; 83550; 83690; 83735; 84100; 84484; 84703; 85025; 85027; 85610; 85730; 86850; 86900; 86901; 87040; 87086; 88108; 93005; 93010; 94760; 99285-25; G0378; Q9967